=== PATIENT | female | born 1990 | race Caucasian/White ===

== ENCOUNTER 2024-06-30 10:51 | Outpatient (AMB) | payer OTHER, SELFPAY ==
--- NOTE | 2024-06-30 11:00 | MHC.PC.OV ---
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 Intake Note: [facility] Allergies No Known Allergies Allergy (Verified 06/30/24 11:21) Medication List - Last Reconciled 06/30/24 by Nita Meza CNP nifedipine ER 30 mg PO DAILY Tobacco use date assessed: 06/30/24 Dental Screening Dental Screen Date: 06/30/24 Did you have a dental visit in the last 12 months?: Yes Did you have a dental problem in the last 6 months where you did not have access to dental care?: No Was dental information given to patient?: Patient has dentist HPI HPI Comments History of Present Illness Details The patient is a 34-year-old female [facility] her ongoing medical conditions, specifically essential hypertension and anemia. She reports a history of essential hypertension first diagnosed in 2019, associated with preeclampsia post-. After the preeclampsia, she received nifedipine 30 mg daily, which she continued for two years before discontinuing. A month ago, her blood pressure elevated again, leading to re-initiation of nifedipine two weeks prior, following an emergency room visit. For her anemia, she has a history of taking ferrous sulfate, last year, which she discontinued six months ago. She denies currently experiencing symptoms related to anemia. Her last comprehensive blood work was approximately two years ago. [facility] - Last office labs/visit/PE: 2 years ago PMH - Hypertension - Iron deficiency anemia Medication - Nifedipine ER 30 mg daily Health Maintenance - Recent vaccinations: COVID-19 and flu shot administered three months ago. - Last Pap smear: December/January 2023, reported as normal. 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 - Last dental visit: One week ago, pending follow-up due to elevated blood pressure during visit. - Eye exam: Last exam over five years ago; referral for routine eye exam planned. - She has never been vaccinated for tetanus. Tdap administered during the visit. - Lifestyle discussions: Low-salt diet emphasized, avoid vaping. - Comprehensive lab work: Planned for completion prior to the next visit; patient advised to fast for 10?12 hours. Social History - Family: Mother to three children, ages 16, 9, and 4. - Residence: Lives in [place]. - Diet: Sometimes makes healthy dietary choices, but generally follows a healthy diet. - Substance use: Vapes flavored substances three times a day and has been vaping for the past 4 years, previously smoked cigarettes until four years ago. No recreational drug use. - Exercise: Reports no regular exercise. - Sleep: Reports generally sleeping well. - Accompanied by: Best friend, referred to as the baby dad. [facility] - Dad: Asthma, cardiovascular disease. - Mom: Diabetes, hypertension. - MGM: Diabetes. [facility] Medical History (Updated 06/30/24 @ 11:53 by Nita Meza CNP) delivery delivered High blood pressure Surgical History (Updated 06/30/24 @ 11:04 by VICENTE Hercules) History of endometrial ablation Family History (Updated 06/30/24 @ 11:24 by VICENTE Hercules) Father Asthma High blood pressure Cardiovascular disease Mother High blood pressure Diabetes Maternal Grandmother Diabetes Brother Asthma Sister Asthma Social History Housing: Apartment Patient Tobacco Use Status: Never used Tobacco e-Cigarette/Vaping Use: Currently Using service: No Current occupational status: employed Current occupation: [employer] Cognitive needs: No Hearing needs: No Vision needs: No Questionnaire PHQ-9 Over the last 2 weeks, how often have you been bothered by any of the following problems? 1. Little interest or pleasure in doing things: not at all 2. Feeling down, depressed, or hopeless: not at all 3. Trouble falling or staying asleep, or sleeping too much: not at all 4. Feeling tired or having little energy: not at all 5. Poor appetite or overeating: not at all 6. Feeling bad about yourself - or that you are a failure or have let yourself or your family down: not at all 7. Trouble concentrating on things, such as reading the newspaper or watching television: not at all 8. Moving or speaking so slowly that other people could have noticed. Or the opposite - being so fidgety or restless that you have been moving around a lot more than usual: not at all 9. Thoughts that you would be better off or of hurting yourself in some way: not at all Total score: 0 Depression Screening Interpretation: Negative Depression Screening Done: Yes [id number] - PHQ-9 Billing: Yes Source: Developed by Drs. Modesto Navarrete, Delisa Suggs, Raúl Mai and colleagues, with an educational juanita from [employer]. Thrive Questionnaire Date Thrive assessed: 06/30/24 I am a: Patient What is your living situation today?: I have a steady place to live Within the past 12 months, did the food you bought not last and you didn't have the money to get more?: Never true Within the past 12 months, did you worry whether your food would run out before you got money to buy more?: Never true Do you have trouble paying for medicines?: Yes Do you have trouble getting transportation to medical appointments?: No Do you have trouble paying your heating and electricity bill?: No Do you have trouble taking care of your child, family member or friend?: No Do you have trouble with day-to-day activities such as bathing, preparing meals, shopping, managing finances, etc.?: No Are you currently unemployed and looking for a job?: No Are you interested in more education?: Yes Please select the resources that you would like help with: None Currently or been in a relationship where the following occur: No concerns reported THRIVE Score: 0 AUDIT C Alcohol Use Questionnaire (AUDIT-C) 1. How often do you have a drink containing alcohol?: Never 3. How often do you have six or more drinks on one occasion?: Never Total Score: 0 Score Reviewed/Action Taken: Yes KELSEA-7 AMB Questionnaire KELSEA-7 Date KELSEA - 7 assessed: 06/30/24 Feeling nervous, anxious, or on edge: 0 = Not at all Not being able to stop or control worryin = Not at all Worrying too much about different things: 0 = Not at all Trouble relaxin = Not at all Being so restless that it is hard to sit still: 0 = Not at all Becoming easily annoyed or irritable: 0 = Not at all Feeling afraid as if something awful might happen: 0 = Not at all Total KELSEA-7 score (0-4 normal; 5-9 mild; 10-14 moderate; 15-21 severe): 0 Source: Developed by Drs. Modesto Navarrete, Delisa Suggs, Raúl Mai and colleagues, with an educational juanita from [employer]. Review of Systems Const Details: Denies chills, Denies fatigue, Denies fever(s), Denies headache(s) and Denies weakness HEENT Denies change in vision, Denies dizziness, Denies headache(s), Denies hearing loss, Denies nasal congestion, Denies sinus pain, Denies sinus pressure and Denies sore throat Card Denies chest pain, Denies lightheadedness, Denies dyspnea and Denies other (palpitations) Resp Denies cough, Denies dyspnea and Denies wheezing GI Denies abdominal pain, Denies melena, Denies hematochezia, Denies change in bowel habits, Denies dyspepsia and Denies nausea Denies hematuria and Denies dysuria Musc Denies abnormal gait, Denies myalgias, Denies arthralgias, Denies numbness and Denies tingling Skin/Breast Denies rash, Denies unusual bruising and Denies wounds Neuro Denies abnormal gait, Denies dizziness, Denies headache(s), Denies memory loss, Denies numbness, Denies Sensory deficit (Neuro), Denies tingling and Denies weakness Psych Denies anxiety, Denies depression and Denies memory loss Endo Denies cold intolerance, Denies fatigue, Denies heat intolerance, Denies polydipsia and Denies polyuria Clemente/Lymph Denies easy bleeding and Denies easy bruising Aller/Immun Denies wheezing Physical exam (Primary Care) Vital Signs: Last Vital Signs Temp 97.9 F 06/30/24 11:12 Pulse 61 06/30/24 11:12 Resp 14 06/30/24 11:12 BP 130/80 06/30/24 11:12 Pulse Ox 100 06/30/24 11:12 Oxygen Delivery Method Room Air 06/30/24 11:12 BMI result Body Mass Index 29.1 Tobacco/Smoking Status: Tobacco use Status Tobacco use date assessed 06/30/24 06/30/24 11:09 Patient Tobacco Use Status Never used Tobacco 06/30/24 11:09 e-Cigarette/Vaping Use Currently Using 06/30/24 11:09 PHQ-9: PHQ-9 Score PHQ-9: Total score 0 06/30/24 11:33 Depression Screening Interpretation: Negative Thrive Assessment: Date of Thrive Assessment Date Thrive assessed 06/30/24 06/30/24 11:09 Currently or been in a relationship where the following occur: No concerns reported Const Other: General: no acute distress, well developed, alert and awake Nutritional Appearance: well nourished Orientation/consciousness: patient oriented x3 HENMT Head: Yes normocephalic and Yes atraumatic Ears: hearing grossly normal bilaterally and TM's normal bilaterally General nose exam: Normal external nose present and Normal nares present Mouth: Normal oral and palatal mucosa present and moist mucous membranes Teeth and gingiva: dentition normal Throat: Yes oropharynx normal Eyes Pupils: Equal, round and reactive pupils present and Pupil accommodation reflex normal EOM: EOMs intact bilaterally Neck Neck: Yes normal visual inspection, Yes no lymphadenopathy and Yes trachea midline Thyroid: Thyroid normal Carotids: no bruits Lymphatic: no lymphadenopathy noted Chest Chest palpation & inspection: normal inspection of the chest Resp Effort & Inspection: normal respiratory effort Auscultation: clear to auscultation bilaterally Cardio Rate: regular rate Rhythm: regular rhythm Heart sounds: S1 normal heart sound present, S2 normal heart sound present, no gallops, no murmurs and no rubs Bruits: no abdominal aortic bruits and no carotid bruits GI Palpation (GI): No Abdominal aortic bruit present, Soft to palpation, nontender, No hepatosplenomegaly present and No Rebound tenderness present Auscultation: normal bowel sounds General: Yes no CVA tenderness Back/Spine/Pelvis Back: no CVA tenderness Cervical Spine: cervical ROM normal and No Cervical spine tenderness Thoracic/Lumbar Spine: thoraco-lumbar ROM normal, No pain with thoraco-lumbar ROM, No thoracic spinal tenderness and No lumbar spinal tenderness Skin General: warm and dry. Normal skin color. Normal skin turgor Lesions: no lesions Rashes: no rashes Trauma: no lacerations or abrasions Wounds: no wounds Nails: normal Neuro General: patient oriented x3, gait normal and CN's II-XI intact bilaterally Cranial nerves: Yes Equal, round and reactive pupils present Cognition (Neuro): normal cognition Gait exam (Neuro): Normal gait present Motor exam (neuro): 5/5 motor strength present throughout Sensory Exam: No Sensory deficit (Neuro) Deep tendon reflexes (DTR's): Right patellar reflex intensity grade: 2+ and Left patellar reflex intensity grade: 2+ Extrem General: Yes normal to inspection, No edema and No calf tenderness Psych Appearance: grossly normal Affect: normal affect Attitude: cooperative Thought process: Normal thought process present Immunizations Boostrix Tdap 2.5 Lf unit-8 mcg-5 Lf/0.5 mL intramuscular syringe Performing Provider: Nita Meza CNP Performing Location: [facility] Administered by: Lani Mo RN on 06/30/24 11:50 Dose Route Admin Location Dispensed Lot Number Expiration Date NDC Dopeman 0.5 mL IM Right Deltoid 0.5 mL [id number] 08/17/26 [id number] [employer] VIS Given Date VIS Provided VIS Publication Date 06/30/24 Single Vaccine 21 Eligibility Eligibility Date Funding Source Not [facility] Eligible 06/30/24 Private Coding Level of Care Code New Pt Prev Care 18-39yr([id number] Diagnoses Normal physical examination, routine Z00.00 High blood pressure I10 Iron deficiency anemia D50.9 Eye exam, routine Z01.00 Engages in vaping Z72.89 Laboratory tests ordered as part of a complete physical exam (CPE) Z00.00 Additional Codes PHQ-9 - 05802 - PHQ-9 Billing: Yes ([id number]) Assessment & Plan Assessment & Plan (1) Normal physical examination, routine: Code(s): Z00.00 - Encounter for general adult medical examination without abnormal findings Category: Medical Plan: No significant functional limitation noted. (2) High blood pressure: Code(s): I10 - Essential (primary) hypertension Category: Medical Plan: Continue nifedipine 30 mg daily. Advisement on low-salt diet provided. (3) Iron deficiency anemia: Code(s): D50.9 - Iron deficiency anemia, unspecified Category: Medical Plan: No current treatment necessary, monitor lab results once obtained. Address adherence to previously prescribed iron supplements if needed. (4) Eye exam, routine: Code(s): Z01.00 - Encounter for examination of eyes and vision without abnormal findings Category: Medical Plan: Referral to an eye doctor for a routine exam. (5) Engages in vaping: Code(s): Z72.89 - Other problems related to lifestyle Category: Medical Plan: Cessation encouraged. (6) Laboratory tests ordered as part of a complete physical exam (CPE): Code(s): Z00.00 - Encounter for general adult medical examination without abnormal findings Category: Medical Plan: Fasting labs ordered as part of a complete physical exam. Advised to fast for at least 10 hours before getting labs drawn. May drink water Verbalized understanding and agreed with treatment plan. Plan During the visit, I discussed the importance of maintaining controlled blood pressure and the benefits of adhering to her prescribed antihypertensive medication. I emphasized lifestyle modifications, including a low-salt diet and cessation of vaping, as crucial to managing her hypertension. For her anemia, I noted the previous course of iron supplementation and reiterated the plan to review lab work to address any deficiencies. Respiratory health risks associated with vaping were discussed, highlighting long-term effects. We reviewed the patient?s immunization history and completed her tetanus vaccination in-office. I recommended routine screening, including an eye exam and ensured agreement on fasting labs before the next visit. Orders: Orders TDaP Immunization Today Z23 - Encounter for immunization Complete Blood Count Auto Diff Today Z00.00 - Encounter for general adult medical examination without abnormal findings Comprehensive [place]. Panel Fast Today Z00.00 - Encounter for general adult medical examination without abnormal findings Lipid Panel Today Z00.00 - Encounter for general adult medical examination without abnormal findings TSH reflex Free T4 Today Z00.00 - Encounter for general adult medical examination without abnormal findings UA CC w/rflx Micro + Cult Today Z00.00 - Encounter for general adult medical examination without abnormal findings Referrals Ophthalmology Referral Z01.00 - Encounter for examination of eyes and vision without abnormal findings Patient Instructions: - Continue nifedipine 30 mg daily for blood pressure management. - Follow a low-salt diet and avoid excessive sodium. - Schedule and complete fasting lab work (10-12 hours fasting) before the next appointment. - Follow up with a dentist for a pending evaluation caused by elevated blood pressure. - Arrange a comprehensive eye exam through referral provided. - Return for follow-up in 2?3 weeks to review lab results. - Continue to avoid smoking and vaping, given associated respiratory risks. - Remain updated on recommended vaccinations. Patient was informed and verbally consented to the use of an ambient scribe for clinic note documentation during this visit.
[2024-06-30 11:12] VITALS: BP 130/80; PULSE 61; RESP 14; TEMP 36.6; O2SAT 100; BMI 29.1
--- OUTSIDE RECORDS SUMMARY | 2024-07-06 01:46 | XMS_ITS ---
Author Name [facility] Organization Unknown Results Test Name/Text Value Interpretation Date Range Source VITAMIN D, 25H 21ng/mL Below low normal - [facility] FERRITIN 13ng/mL Normal 6 - 307 [facility] CREATININE 0.8mg/dL Normal 0.6 - 1.2 [facility] SODIUM 142mmol/L Normal 137 - 144 [facility] CHLORIDE 107mmol/L Normal 100 - 111 [facility] CALCIUM, TOTAL 9mg/dL Normal 8.4 - 10.2 [facility] AST (SGOT) 78U/L Above high normal 17 - 35 [facility] UREA NITROGEN 14mg/dL Normal 8 - [address] [facility] ALBUMIN, AUTOMATED 4.1g/dL Normal 3.8 - 5. 3 [facility] GLUCOSE 68mg/dL Below low normal 70 - 200 [facility] BICARBONATE 28mmol/L Normal 23 - 32 [facility] POTASSIUM 3.8mmol/L Normal 3.6 - 5.1 [facility] GLOMERULAR FILTRATION RATE ML/MIN/1.73 SQ M.PREDICTED 99mL/min/1.73m* 2 Normal 60 - [facility] ALT (SGPT) 24U/L Normal 8 - 39 [facility] PROTEIN TOTAL 6.8g/dL Normal 6.2 - 8.[address] [facility] BILIRUBIN, TOTAL 0.4mg/dL Normal 0.1 - 1.2 [facility] ALKALINE PHOSPHATASE 68U/L Normal 39 - 1 13 [facility] ANION GAP 7mmol/L Normal 3 - 11 [facility] THYROID STIM HORMONE 0.79uIU/mL Normal 0.35 - 4.94 [facility] RBC DISTRIBUTION WIDTH 13% Normal 11.6 - 14.8 [facility] AUTO NRBC % 0% Normal 0 - [address] [facility] [address] 3.810*3/uL Normal 1.4 - 6.[address] [facility] [address] 0.510*3/uL Normal 0.2 - 0.8 [facility] MCHC 31.9g/dL Below low normal 32 - 36 [facility] MCH 30.2pg Normal 26 - 34 [facility] IMMATURE GRANULOCYTE % 0.3% Normal 0 - 0.6 [facility] EOSINOPHIL % 4.1% Normal 0 - 6 [facility] ABSOLUTE BASOPHIL CT 0.110*3/uL Normal 0 - 0 .2 [facility] MCV 94.6fL Normal 80 - 100 [facility] PLATELET COUNT 25241*3/uL Normal [id number] 150 - 440 [facility] BASOPHILS % 1% Normal 0 - [address] [facility] [address] 1.710*3/uL Normal 0.7 - 4.[address] [facility] [address] 0.310*3/uL Normal 0 - 0.3 [facility] HEMATOCRIT 40.4% Normal 35 - 47 [facility] WHITE CELL COUNT 6.310*3/uL Normal 3.6 - 11 [facility] RED CELL COUNT 4.2710*6/???L Normal 3.8 - 5. 2 [facility] MONOCYTE % 7.9% Normal 4 - 12 [facility] NEUTROPHIL % 60.2% Normal 40 - 70 [facility] HEMOGLOBIN 12.9g/dL Normal 12 - 16 [facility] LYMPHOCYTE % 26.5% Normal 20 - 50 [facility] VITAMIN B12 426pg/mL Normal [id number] [facility] MICROCYTOSIS 1+ Normal [id number] [facility] RBC MORPHOLOGY (STATUS) Present Normal [id number] [facility] HYPOCHROMIA 1+ Normal [facility] RBC DISTRIBUTION WIDTH 32.2% Above high normal [id number] 11.6 - 14.8 [facility] PLATELET COUNT 15288*3/uL Normal [id number] 150 - 440 [facility] MCHC 29.1g/dL Below low normal [id number] 32 - 36 [facility] HEMATOCRIT 35.8% Normal [id number] 35 - 47 [facility] WHITE CELL COUNT 4.610*3/uL Normal [id number] 3.6 - 11 [facility] MCH 23pg Below low normal [id number] 26 - 34 [facility] RED CELL COUNT 4.5210*6/???L Normal [id number] 3.8 - 5. 2 [facility] MCV 79.2fL Below low normal [id number] 80 - 100 [facility] HEMOGLOBIN 10.4g/dL Below low normal [id number] 12 - 16 [facility] BACTERIA Few Normal [id number] - [facility] RBC 2-4 Normal [id number] 0 - 1 [facility] EPITHELIAL CELLS Many Normal [id number] - [facility] MUCUS 2+ Normal [id number] - [facility] WBC 0-2 Normal [id number] 0 - 2 [facility] CREATININE 0.8mg/dL Normal [id number] 0.6 - 1.2 [facility] POTASSIUM 4.1mmol/L Normal [id number] 3.6 - 5.1 [facility] BICARBONATE 25mmol/L Normal [id number] 23 - 32 [facility] GLOMERULAR FILTRATION RATE ML/MIN/1.73 SQ M.PREDICTED 100mL/min/1.73m *2 Normal [id number] 60 - [facility] SODIUM 140mmol/L Normal [id number] 137 - 144 [facility] CHLORIDE 109mmol/L Normal [id number] 100 - 111 [facility] CALCIUM, TOTAL 8.7mg/dL Normal [id number] 8.4 - 10.2 [facility] UREA NITROGEN 9mg/dL Normal [id number] 8 - 24 [facility] ANION GAP 6mmol/L Normal [id number] 3 - 11 [facility] GLUCOSE 68mg/dL Below low normal [id number] 70 - 200 [facility] ALBUMIN, AUTOMATED 4g/dL Normal [id number] 3.8 - 5. 3 [facility] COLOR OF URINE Yellow Normal [id number] - [facility] PROTEIN, SULFOSALICYLIC Trace Abnormal [id number] - [facility] LEUKOCYTE ESTERASE Negative Normal [id number] - [facility] PH OF URINE 7 Normal [id number] 5 - 8 [facility] KETONES URINE Negative Normal [id number] - [facility] UROBILINOGEN, URINE 0.2EU/dL Normal [id number] 0.2 - 1 [facility] NITRITE Negative Normal [id number] - [facility] BILIRUBIN, URINE Negative Normal [id number] - [facility] CLARITY OF URINE Clear Normal [id number] - [facility] PROTEIN QUAL Trace Abnormal [id number] - [facility] HEMOGLOBIN, URINE Trace Abnormal [id number] - [facility] GLUCOSE, QUAL Negative Normal [id number] - [facility] SPECIFIC GRAVITY 1.02 Normal [id number] 1.003 - 1.035 [facility] FOLATE 15.4ng/mL Normal [id number] 7 - 31.4 [facility] History of Medication Use Medication Directions Dispensed Refills Start Date End Date Stat FeroSuL 325 mg (65 mg iron) tablet Take 1 tablet (325 mg total) by mouth daily with breakfast. 11/04/2023 active ibuprofen (MOTRIN) 600 MG tablet Take 1 tablet (600 mg total) by mouth 4 times daily (every 6 hours) as needed for mild pain. 02/26/2023 active ammonium lactate (LAC-HYDRIN) 12 % lotion Apply topically as needed for dry skin. For hands and legs 06/01/2022 active triamcinolone (KENALOG) 0.5 % cream Apply topically 2 (two) times a day. 08/28/2023 active ibuprofen 600 mg tablet Take 1 tablet (600 mg total) by mouth 3 (three) times a day as needed for mild pain (1-3). 08/14/2022 active hydrocortisone 2.5 % cream 12/17/2022 active cephalexin (KEFLEX) 500 MG capsule Take 1 capsule (500 mg total) by mouth 4 (four) times a day. 08/28/2023 active FeroSuL 325 mg (65 mg iron) tablet 03/21/2023 active sertraline (ZOLOFT) 50 MG tablet Take 1/2 tablet at bedtime x 7 days then increase to 1 pill at bedtime 12/19/2022 aborted ondansetron (Zofran) 8 mg tablet Take 1 tablet (8 mg total) by mouth every 8 (eight) hours as needed for nausea or vomiting. 08/14/2022 active LORazepam (ATIVAN) 0.5 MG tablet Take 1 tablet (0.5 mg total) by mouth daily as needed for anxiety. 12/19/2022 aborted fexofenadine (ARVIN) 180 MG tablet Take 1 tablet (180 mg total) by mouth daily. Administer with water only; do not administer with fruit juices. 08/28/2023 active cephalexin (KEFLEX) 500 MG capsule Take 1 capsule (500 mg total) by mouth 4 (four) times a day. 08/28/2023 active FeroSuL 325 mg (65 mg iron) tablet 03/21/2023 active iron,carbonyl-vitami n C 65 mg iron- 125 mg tablet,delayed release (DR/EC) Take 1 tablet by mouth in the morning. 08/14/2022 active tranexamic acid (LYSTEDA) 650 MG Tab tablet Take 2 tablets three times a day for a total of 6 pills a day during your period for 5 days 12/26/2022 active betamethasone valerate (VALISONE) 0.1 % ointment Apply topically 2 (two) times a day. 06/01/2022 active NIFEdipine (PROCARDIA XL) 30 MG 24 hr tablet Take 1 tablet (30 mg total) by mouth daily. 12/19/2022 aborted ibuprofen (MOTRIN) 800 mg tablet Take 1 tablet (800 mg total) by mouth 3 times daily (every 8 hours) as needed for moderate pain. 12/19/2022 aborted lidocaine (ZTlido) 1.8 % adhesive patch,medicated Apply 1 patch topically daily. Keep on for 12 hrs then remove and leave off for 12 hrs 06/01/2022 active NIFEdipine XL (PROCARDIA XL) 30 mg 24 hr tablet Take 1 tablet (30 mg total) by mouth in the morning. 06/01/2022 active COVID-19 antigen test (COVID-19 At-Home Test) kit 1 Package once as needed (fever, cough) for up to 1 dose. 08/14/2022 active betamethasone dipropionate (DIPROLENE) 0.05 % ointment Apply topically 2 (two) times a day as needed. 12/19/2022 aborted nitrofurantoin monohydrate (MACROBID) 100 MG capsule Take 1 capsule (100 mg total) by mouth 2 (two) times a day. Dispense generic equivalent of MACROBID 01/04/2023 active HYDROmorphone (DILAUDID) 2 MG tablet Take 1 tablet (2 mg total) by mouth 4 times daily (every 6 hours) as needed for severe pain. Max Daily Amount: 8 mg 02/26/2023 aborted ergocalciferol (VITAMIN D2) 1,250 mcg (50,000 unit) capsule Take 1 capsule (50,000 Units total) by mouth once a week. 08/14/2022 active sertraline (ZOLOFT) 25 MG tablet Take 1 tablet (25 mg total) by mouth daily. 12/19/2022 aborted iron sucrose (VENOFER) 300 mg in sodium chloride (NS) 0.9 % 100 mL IVPB 300 mg, Intravenous, Administer over 60 Minutes, Once, On Thu01/09/23 at 1730, For 1 doseWhen administering to hemodialysis-depen dent patients, give iron sucrose early during the dialysis session.??Administ er doses less than or equal to 200 mg undiluted by slow IV injection over 5 minutes.??Infuse do 12/28/2022 completed PARoxetine (PAXIL) 10 mg tablet take 1/2 tablet by oral route every bedtime for 1 week. then 1 whole tablet at bedtime 03/21/2023 active No known medications No known medications 02/14/2023 active VITAFOL-ONE 29 mg iron- 1 mg-200 mg capsule Take 1 capsule by mouth. 06/01/2022 active hydrocortisone 2.5 % cream 06/01/2022 active multivitamin Tab tablet Take 1 tablet by mouth daily. 12/18/2022 active diclofenac sodium (Voltaren) 1 % gel Apply topically 4 (four) times a day. 06/01/2022 active ferrous sulfate 325 (65 FE) MG tablet Take 1 tablet (325 mg total) by mouth daily. Take 2 hours before or 4 hours after acid reducers. 12/26/2022 active Problems Problem Status Onset Date Problem Type Date of Resolution Source Other specified anemias active 2022-12-23 ProblemAct [facility] Term active 2019-08-[address] [address] Menometrorrhagia active 2022-12-15 ProblemAct [facility] Palpitations active 2020-04-26 ProblemAct [facility] Eczema of both hands active 2022-05-16 ProblemAct [facility] Anemia active 2022-12-23 ProblemAct [facility] control counseling active 2019-08-01 ProblemAct [facility] Preeclampsia active 2019-09-01 ProblemAct [facility] Hypertension active 2019-08-01 ProblemAct [facility] History of delivery active 2019-05-05 ProblemAct [facility] 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-04 ProblemAct [facility] Hx of macrosomia, infant of prior , currently active 2019-08-01 ProblemAct [facility] Pruritus active EncounterDiagnosisAct [facility] Dermatitis active EncounterDiagnosisAct [facility] Generalized anxiety disorder active 2019-11-04 ProblemAct [facility] Acute stress disorder active 2019-11-04 ProblemAct [facility] Menorrhagia with regular cycle active 2023-03-09 ProblemAct [facility] Essential hypertension active 2020-02-01 ProblemAct [facility] Dislocation of shoulder, recurrent, right active 2020-02-01 ProblemAct [facility] Abnormal vaginal bleeding active 2022-12-22 ProblemAct [facility] History of pre-eclampsia active 2019-09-01 ProblemAct [facility] Anxiety active 2020-02-01 ProblemAct [facility] Immunizations Vaccine Date Source Lot Number Status Influenza (IM) Preservative Free 06/25/2016 [facility] completed Tdap 01/07/2018 [facility] completed COVID-19 mRNA (PFIZER) 12/06/2020 [facility] co mpleted Tdap 07/06/2019 [facility] completed COVID-19 mRNA (PFIZER) 06/27/2021 [facility] co mpleted Influenza, Quadrivalent 06/01/2020 [facility] [id number] c ompleted Influenza TIV (IM) 05/20/2018 [facility] comple lucho COVID-19 mRNA (PFIZER) 11/15/2020 [facility] co mpleted
--- OUTSIDE RECORDS SUMMARY | 2024-07-06 01:46 | XMS_ITS | Continuity of Care Document ---
Author Organization [facility] vices Address [address] [place] [address] Phone Care Team Providers Care Janitorial Assistant Name Role Phone Fiona Jimenez LMSW Unavailable Unavail able Procedures Procedure Date Psychotherapy, 30 Minutes With Patient D Advance Directives Directive Yes / No Effective Date File Name No Information Encounters Encounter Description Practice Location Reason(s) For Visit Diagnoses Date Provider Providers Copied on Encounter [facility], [address] [place] [address], [facility] [place] [phone] [facility] No Information Yoseph Jaimes. [address] [place] [address], . [phone] Psychotherapy , 30 Minutes With Patient [facility], [address] [place] [address], [facility] [place], [phone] [facility] Adjustment disorder with anxiety Yoseph Jaimes. [address] [place] [address], . tel:[phone] Family History Family Member Type Diagnosis Age At Onset No Information Payers Payer name Insurance type Covered green party ID Authoriza tion(s) CARRI Vides [id number] Social History Type Description Quantity Date Captured Comments Sex Female Smoking Status No Information Sexual Orientation Straight or heterosexual May Gender Identity Female Chief Complaint And Reason For Visit No Information Reason For Referral Reason For Referral No Information History Of Present Illness Encounter Date Complaint History Of Prese nt Illness No Information Functional Status Date Functional Assessmen t No Information Instructions Date Instruction Additional Infor mation No Information Assessments Type Assessment Date No Information Patient Care Teams Name Effective Dates (start - stop) Status Members No Information
== END 2024-06-30 11:48 | disposition home or self-care (01) ==
PROVIDERS: PCP Nurse Practitioner Family; Visit Provider Nurse Practitioner Family
DX: Z00.00 Encounter for general adult medical examination without abnormal findings (principal); I10 Essential (primary) hypertension; D50.9 Iron deficiency anemia, unspecified; Z72.89 Other problems related to lifestyle; Z23 Encounter for immunization

== ENCOUNTER → 2024-06-30 10:51 | Outpatient (BNVA) | payer OTHER, SELFPAY | PROVIDERS: PCP Nurse Practitioner Family; Visit Provider Nurse Practitioner Family | DX: Z00.00 Encounter for general adult medical examination without abnormal findings (principal); Z23 Encounter for immunization; I10 Essential (primary) hypertension; D50.9 Iron deficiency anemia, unspecified | CPT/HCPCS: 90471; 90715; 96127; 99385 ==

== ENCOUNTER 2024-07-13 08:59 | Outpatient (REF) | payer OTHER, SELFPAY ==
[2024-07-13 11:50] LABS: Appearance Urine Cloudy; Color Urine Yellow; Glucose Urine UA Negative (Negative); Leukocyte Esterase Urine Negative (Negative); Nitrite Urine Negative (Negative); PH 6.5 (5.0-9.0); Specific Gravity - Urine 1.015 (1.005-1.025); Urine Blood Negative (Negative); Urine Ketones Negative (Negative); Urine Protein Negative (Neg-Trace)
[2024-07-13 12:00] LABS: MANUAL DIFF FLAG NO
[2024-07-13 12:02] LABS: Basophils Absolute Auto 0.1 X10*3/uL (0.0-0.2); Basophils Percent Auto 1.4 % (0-2); Eosinophils Absolute Auto 0.3 X10*3/uL (0.0-0.4); Eosinophils Percent Auto 5.2 % (0-4); Hematocrit 38.8 % (37.0-47.0); Hemoglobin 12.8 g/dl (12.0-16.0); Imm Gran Abs Auto 0.02 X10*3/uL (0.00-0.03); Imm Gran Pct Auto 0.4 % (0.0-0.4); Lymphocytes Absolute Auto 1.6 X10*3/uL (1.2-4.9); Lymphocytes Percent Auto 28.1 % (20-40); Mean Corpuscular Hemoglobin 29.4 pg (27.0-33.0); Mean Corpuscular Volume 89.2 fL (80.0-98.0); Mean Platelet Volume 10.7 fL (9.4-12.3); Monocytes Absolute Auto 0.3 X10*3/uL (0.1-1.2); Neutrophils Absolute Auto 3.3 x10*3/uL (2.0-8.3); Neutrophils Percent Auto 58.9 % (45-73); Platelet Count 304 X10*3/uL (160-400); Red Blood Count 4.35 X10*6/uL (4.20-5.50); White Blood Count 5.6 X10*3/uL (4.8-10.8)
[2024-07-13 12:24] LABS: Alanine Aminotransferase 21 U/L (0-31); Albumin Level 4.1 g/dL (3.5-5.0); Alkaline Phosphatase 76 U/L (39-117); Anion Gap 7 (12-20); Aspartate Amino Transferase 98 U/L (5-31); Bilirubin Total 0.2 mg/dL (0.0-1.0); Blood Urea Nitrogen 10 mg/dL (9-16); Calcium 8.3 mg/dL (8.4-10.2); Carbon Dioxide 29 mmol/L (22-29); Chloride 108 mmol/L (96-108); Cholesterol 137 mg/dL (<200); Estimated Glomerular Filt Rate > 60; Glucose Fasting 98 mg/dL (60-99); HDL Cholesterol 38 mg/dL (>40); LDL Cholesterol Calculated 84 mg/dL (<100); Potassium 3.8 mmol/L (3.3-5.1); Sodium 140 mmol/L (135-145); Total Protein 7.3 g/dL (6.5-8.0); Triglycerides 77 mg/dL (<150)
[2024-07-13 12:44] LABS: TSH reflex Free T4 0.97 uIU/mL (0.32-4.0)
== END 2024-07-13 09:00 | disposition home or self-care (01) ==
LOC: HO.WFDLDS 08:59
PROVIDERS: Visit Provider Nurse Practitioner Family
DX: Z00.00 Encounter for general adult medical examination without abnormal findings (principal)
CPT/HCPCS: 36415; 80053; 80061; 81003; 84443; 85025

== ENCOUNTER 2024-07-15 13:55 | Outpatient (AMB) | payer OTHER, SELFPAY ==
--- NOTE | 2024-07-15 13:52 | A.OFFPC_ITS ---
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 Required: No Is last menstrual period known: Yes Last menstrual period: 06/29/24 Post menopausal: No Patient : No Allergies No Known Allergies Allergy (Verified 07/15/24 13:52) Tobacco use date assessed: 07/15/24 Dental Screening Dental Screen Date: 07/15/24 Did you have a dental visit in the last 12 months?: Yes Did you have a dental problem in the last 6 months where you did not have access to dental care?: No Was dental information given to patient?: Patient has dentist HPI HPI Comments History of Present Illness Details 34-year-old [facility] of recent lab results. She admits to taking her medication as prescribed without adverse reactions. No acute symptoms at this time. [facility] Medical History (Updated 07/15/24 @ 14:41 by Nita Meza CNP) delivery delivered High blood pressure Surgical History (Updated 06/30/24 @ 11:04 by VICENTE Hercules) History of endometrial ablation Family History (Updated 06/30/24 @ 11:24 by VICENTE Hercules) Father Asthma High blood pressure Cardiovascular disease Mother High blood pressure Diabetes Maternal Grandmother Diabetes Brother Asthma Sister Asthma Social History Housing: Apartment Patient Tobacco Use Status: Never used Tobacco e-Cigarette/Vaping Use: Currently Using Patient : No service: No Current occupational status: employed Current occupation: [employer] Cognitive needs: No Hearing needs: No Vision needs: No Female Reproductive History Menstrual Date of last menstrual period: 06/29/24 Questionnaire Thrive Questionnaire Date Thrive assessed: 06/30/24 KELSEA-7 AMB Questionnaire KELSEA-7 Date KELSEA - 7 assessed: 06/30/24 Source: Developed by Drs. Modesto Navarrete, Delisa Suggs, Raúl Mai and colleagues, with an educational juanita from [employer]. Review of Systems Const Details: Const Denies chills, Denies fatigue, Denies fever(s), Denies headache(s) and Denies weakness ENT Denies dizziness and Denies headache(s) Card Denies chest pain, Denies lightheadedness, Denies dyspnea and Denies other (Palpitations) Resp Denies cough, Denies dyspnea, Denies wheezing and Denies other ( shortness of breath) GI Denies abdominal pain, Denies melena, Denies hematochezia, Denies change in bowel habits, Denies dyspepsia and Denies nausea Denies hematuria and Denies dysuria Musc Denies abnormal gait, Denies myalgias, Denies arthralgias, Denies numbness and Denies tingling Skin/Breast Denies rash, Denies unusual bruising and Denies wounds Neuro Denies abnormal gait, Denies dizziness, Denies headache(s), Denies memory loss, Denies numbness, Denies Sensory deficit (Neuro), Denies tingling and Denies weakness Psych Denies anxiety, Denies depression, Denies memory loss Endo Denies cold intolerance, Denies fatigue, Denies heat intolerance, Denies polydipsia and Denies polyuria Aller/Immun Denies wheezing Physical exam (Primary Care) Tobacco/Smoking Status: Tobacco use Status Tobacco use date assessed 07/15/24 07/15/24 13:53 Patient Tobacco Use Status Never used Tobacco 07/15/24 13:53 e-Cigarette/Vaping Use Currently Using 07/15/24 13:53 Thrive Assessment: Date of Thrive Assessment Date Thrive assessed 06/30/24 07/15/24 13:53 Const Other: Telehealth visit. No physical exam. Telehealth Telehealth Telehealth Platform: Telephone Location of provider rendering services: practice address Location of patient: address on file Patient Identification confirmed using: Name, : Yes Telehealth method: voice only Patient verbally consented to treatment: Yes Patient verbally consented to billing insurance company: Yes Patient informed of any privacy concerns related to visit: Yes Coding Level of Care Code Tele New Pt Level 3 (43323) Diagnoses Hypocalcemia E83.51 Elevated AST (SGOT) R74.01 Low HDL (under 40) E78.6 Time Spent (min) 10 Assessment & Plan Assessment & Plan (1) Hypocalcemia: Code(s): E83.51 - Hypocalcemia Category: Medical Plan: Recent calcium level is slightly low, 8.3. Will recheck calcium level and check vitamin-D level. Will make changes as needed. Advised to get blood work done at her earliest convenience. Will make changes as needed. Follow-up in 3 months for hypertension or sooner with symptoms or concerns. Verbalized understanding and agreed with the plan. (2) Elevated AST (SGOT): Code(s): R74.01 - Elevation of levels of liver transaminase levels Category: Medical Plan: Recent AST level is elevated, 98. Hepatic steatosis is possible. Will recheck liver panel make changes and as needed. Advised to fast for 10-12 hours, may drink water, and get lab work done before next visit. Verbalized understanding and agreed with the plan. (3) Low HDL (under 40): Code(s): E78.6 - Lipoprotein deficiency Category: Medical Plan: Recent HDL level is slightly low 38. Advised to limit foods high in saturated fat and avoid foods high in trans fat. Routine exercise encouraged. Will check lipid panel level annually or if symptomatic. Verbalized understanding and agreed with the plan. Orders: Orders Vitamin D 25-OH Total Today E83.51 - Hypocalcemia Calcium Today E83.51 - Hypocalcemia Liver Panel Today R74.01 - Elevation of levels of liver transaminase levels
== END 2024-07-15 14:53 | disposition home or self-care (01) ==
LOC: HO.HMCFM 13:55
PROVIDERS: PCP Nurse Practitioner Family; Visit Provider Nurse Practitioner Family
DX: E83.51 Hypocalcemia (principal); R74.01 Elevation of levels of liver transaminase levels; E78.6 Lipoprotein deficiency

== ENCOUNTER → 2024-07-15 13:55 | Outpatient (BNVA) | payer OTHER, SELFPAY | PROVIDERS: PCP Nurse Practitioner Family; Visit Provider Nurse Practitioner Family ==

== ENCOUNTER 2024-09-29 11:52 | Outpatient (REF) | payer OTHER, SELFPAY ==
--- OUTSIDE RECORDS SUMMARY | 2024-09-29 15:01 | XMS_ITS | Encounter Summary ---
Author Organization [facility] Address [address] [place] [address] Care Team Providers Care Radiochemical Technician Name Role Phone Provider, Unknown Unavailable Bryanna Herrmann MD Primary Care Provider Greta Gray LPCA Unavailable Carrie Hunt BUSINESS INTELLIGENCE ADMINISTRATOR Unavailable Unknown Primary Care Provider [phone] -[phone] Encounter Details Date Type Department Care Team (Late st Contact Info) Description 10/16/2020 Lab Requisition [facility] Through [address] [place] [phone] Mike Frank MD [address] [place], [place] [phone] Encounter for laboratory testing for COVID-19 virus [...] Date/Time Associated Diagnosis Comments COVID-19 (SARS-COV-2) - [facility] Routine 10/16/2020 12:43 PM EDT Encounter for laboratory testing for COVID-19 virus [ICD-10-CM] documented in this encounter Results * COVID-19 (SARS-COV-2) ([facility]) (10/16/2020 12:43 PM EDT) COVID-19 RT-PCR NOT-DETEC TAMARA Not-Detec tamara 10/17/2020 2:52 PM EDT [facility] RACHEL QUINONEZ Comment:Interpretation: The viral RNA was not detected, making the COVID-19 diagnosis less likely. Clinical correlation is highly recommended.Final report signed by Murphy Corona, Ph.D., Laboratory DirectorTests performed at [facility] Nasopharyngeal swab / Unknown 10/16/2020 12:43 PM EDT 10/16/2020 12:43 PM EDT [facility]ative [facility] - 10/17/2020 2:52 PM EDT Performed by [facility] [address] [place] [address], CLIA# [id number] and [place] License# [id number] Mike Frank MD MICROBIOLOGY - GENER AL ORDERABLES YEE QUINONEZ documented in this encounter Visit Diagnoses Diagnosis Encounter for laboratory testing for COVID-19 virus documented in this encounter Care Teams Radiochemical Technician Relationship Specialty Start Date End Date Bryanna Herrmann MD 1 DO NOT USE THIS RECORD PCP - General Obstetrics and Gynecology 09/01/19 12/28/22 Unknown Unknow Provider Address PCP - General 12/29/22 Provider, Unknown 1 DO NOT USE THIS RECORD 02/01/19 Greta Gray LPCA 1 DO NOT USE THIS RECORD Clinician Social Work 10/05/19 11/29/20 Carrie Hunt APRN [address] [place] [address] Primary BH Attending Psychiatry, General 10/28/19 documented as of this encounter
--- OUTSIDE RECORDS SUMMARY | 2024-09-29 15:01 | XMS_ITS | Clinical Summary ---
Author Organization [facility] ity Address [address] [place] [address] Care Team Providers Care Lead Software Development Engineer Name Role Phone Unavailable Primary Care Provider [...]
--- OUTSIDE RECORDS SUMMARY | 2024-09-29 15:01 | XMS_ITS | Clinical Summary ---
Author Organization [facility] Address [address] [place] [address] Care Team Providers Care Taker Down Name Role Phone Provider, Unknown Unavailable [phone] Unknown Primary Care Provider [phone] [...] (05/20/2019): Added automatically from request for surgery [id number] Resolved Problems Problem Noted Date Diagnosed Date [...] Date/Time Associated Diagnosis Comments THINPREP PAP TEST (YOGH[employer]T MAKER) WITH HPV REFLEX, GC/CT Routine 12/15/2022 3:19 [...] Lincoln MD LAB AMB PATH/CYTO OR DERABLES [facility] [address] [place] [address], [place] from Last 3 Months or Most [...] Agents on File Name Relationship Healthcare Agent [facility] p Communication Refugio Mortonantonio Spouse 4. Next of K in (Spouse, Adult Child, Parent, Adult Sibling, Grandparent) Care Teams Taker Down Relationship Specialty Start Date End Date Unknown Unknow Provider Address PCP - General 12/29/22 Provider, Unknown 1 DO NOT USE THIS RECORD 02/01/19
--- OUTSIDE RECORDS SUMMARY | 2024-09-29 15:01 | XMS_ITS | Patient Health Record ---
Author Organization [facility] Address [address] [place] [address] Care Team Providers Care Hamper Maker Name Role Phone Jabier Tucker Primary Care Provider Reason For Referral No Information Medications Medication SIG (Take, Route, Frequency, Duration) Notes Start Date End Date Status Blood Pressure Kit - Take for I10 daily please issue digital monitor in vitro daily for 365 days I10 Digital Monitor Length of need:365 days 09/30/2018 Active NIFEdipine ER 60 MG 1 tablet on an empty stomach Orally Once a day Active Plus 27-1 MG 1 tablet Orally On ce a day for 30 day(s) 01/24/2019 Active Immunizations Vaccine Route Administration Date Status Comme nts Influenza (split), 3 yrs and above Unknown 05/20/2018 Pending Influenza (split), 3 yrs and above IM Intramuscular 05/20/2018 Administered Influenza, seasonal, injectable, preservative free, 3 yrs and above IM Intramuscular 06/25/2016 Administered Tdap IM Intramuscular 01/07/2018 Administered Social History Tobacco Use: Social History Observation Description Date Details (start date - stop date) Never Smoker NA - NA Sex Assigned At : Social History Observation Description Sex Assigned At Female * Tobacco Use/Smoking assessment Question Answer Notes Are you a nonsmoker Additional Findings: Tobacco Non-User Current no n-smoker Alcohol Screen (Audit-C) Question Answer Notes Did you have a drink containing alcohol in the p ast year? No Points 0 Interpretation Negative Sexual History Question Answer Notes Had sex in the past 12 months (vaginal, oral, or anal)? Yes with Men only Use protection? No Have you ever had a Sexually transmitted disease ? No Last menstrual period now DAST - Drug and Alcohol Question Answer Notes Total Score: 0 Interpretation: No problems reported SBIRT Question Answer Notes Patient refused/declined SBIRT screening at this time? No In the past 3 months, how of ten do you have a drink containing alcohol? Never In the past 3 months, how of ten do you have 4 or more drinks on one occasion? Females (and Males 65 and older). In the past 3 months, how often do you have 5 or more drinks on one occasion? Males (younger than 65) Never In the past 12 months, did y ou smoke pot, use another street drug, or use a prescription painkiller, stimulant, or sedative for a non-medical reason? No The cumulative score is 0 A referral is not needed Problems Problem Type SNOMED Code ICD Code Onset Dates Problem Status W/U Status Risk Notes Problem 90749408 Essential (primary) hypertension (I10) Active confirmed Problem 372209002 Anxiety disorder, unspecified type (F41.9) Active confirmed Problem 60566456 Amenorrhea (N91.2) Active confirmed Problem Obesity (515189290) Obesity (E66.9) Active confirmed Problem 05164845 Folliculitis (L73.9) Active confirmed Problem Menstrual disorder (488054100) Irregular menses (N92.6) Active confirmed Problem 77940106 Absent menses (N91.2) Active confirmed Problem 110174624 Mass of left side of neck (R22.1) Active confirmed present x 11 years Problem 843510008 LFT elevation (R94.5) Active confirmed liver echogenic on US c/w fatty liver 02/10 Problem 302833683 NAFLD (nonalcoholic fatty liver disease) (K76.0) Active confirmed AST previously 50, now 52. denies alcohol use Problem 569676670 Dyshidrotic eczema (L30.1) Active confirmed Problem 676919318 Encounter for tobacco use cessation counseling (Z71.6) Active confirmed Plan Of Treatment Pending Test Test Name Order Date Urinalysis 06/25/2016 Urinalysis 03/03/2016 RESPIRATORY ALLERGY PROFILE REGION I THINPREP TIS PAP REFLEX HPV mRNA E6/E7, CT/NG, TRICH 02/26/2017 HEPATIC FUNCTION PANEL 05/20/2018 CHLAMYDIA/N. GONORRHOEAE RNA, TMA 2015 CULTURE, URINE, ROUTINE 06/25/2016 HCG 05/27/2016 HCG 04/11/2016 Insurance Providers Payer Name Payer Address Payer Phone Subscriber Number Group Number Insured Name Patient Relationship to Insured Coverage Start Date Coverage End Date [employer] [address] [place] [phone] [id number] Vivian Sy Self - patient is the insured [employer] [address] [place] [phone] [id number] Vivian Sy Self - patient is the insured Medications Administered Medication Instructions Date of Administration Dosage Notes DEPO PROVERA 06/04/2016 1 mL DEPO PROVERA 09/01/2016 1 mL DEPO PROVERA 11/19/2016 1 mL DEPO PROVERA 01/30/2017 1 mL DEPO PROVERA 04/30/2017 1 mL DEPO PROVERA 08/06/2017 1.0 mL DEPO PROVERA 12/03/2017 1.0 mL DEPO PROVERA 03/04/2018 1.0 mL tolerated we ll. Due for next depo May 20- June 03 DEPO PROVERA 05/27/2018 1.0 mL DEPO PROVERA 08/13/2018 1.0 mL Medical (General) History Medical History History ICD Code GARCIA (nonalcoholic steatohepatitis) GARCIA (nonalcoholic steatohepatitis) K75. 81 Preclampsia--2020 Surgical History Surgery Date(Month/Year) x 2 umbilical hernia repair 2010 C section 08/28/2019
--- OUTSIDE RECORDS SUMMARY | 2024-09-29 15:01 | XMS_ITS | Clinical Summary ---
Author Organization [facility] [employer] [facility] Address [address] [place] [address] Care Team Providers Care House Fellow Name Role Phone Unavailable Primary Care Provider [...]
--- OUTSIDE RECORDS SUMMARY | 2024-09-29 15:01 | XMS_ITS | Clinical Summary ---
Author Organization [facility] Address [address] [place] [address] Care Team Providers Care Diesel Motor Mechanic Name Role Phone Kristie Bishop Primary Care Provider [phone] Allergies No known active allergies Medications VITAFOL-ONE [...] topic Insurance MEDICAID HUSKY A Care Teams Diesel Motor Mechanic Relationship Specialty Start Date End Date Kristie Bishop [address] [place] [address] [address] [place] [address] PCP - General Internal Medicine 10/05/19
--- OUTSIDE RECORDS SUMMARY | 2024-09-29 15:01 | XMS_ITS | Encounter Summary ---
Author Organization [facility] Address [address] [place] [address] Care Team Providers Care Pie Maker Name Role Phone Benito Calvillograce More CNM Primary Care Provider [phone] Provider, Unknown Unavailable [phone] Bryanna Herrmann MD Primary Care Provider [phone] Greta Gray LPCA Unavailable [phone] Carrie Hunt CLASSICS PROFESSOR Unavailable [phone] Unknown Primary Care Provider [phone] Encounter Details Date Type Department Care Team (Late st Contact Info) Description 05/20/2019 Prep for Surgery OBGYN IP [address] [place] [phone] Bryanna Herrmann MD [address] [place] [phone] History of delivery (Primary Dx) Social History [...] Primary documented in this encounter Care Teams Pie Maker Relationship Specialty Start Date End Date Viridiana Calvillo CNM [address] [place] [address] [place] [address] PCP - General Obstetrics and Gynecology 02/01/19 08/31/19 Bryanna Herrmann MD 1 DO NOT USE THIS RECORD PCP - General Obstetrics and Gynecology 09/01/19 12/28/22 Unknown Unknow Provider Address PCP - General 12/29/22 Provider, Unknown 1 DO NOT USE THIS RECORD 02/01/19 Greta Gray LPCA 1 DO NOT USE THIS RECORD Clinician Social Work 10/05/19 11/29/20 Carrie Hunt APRN [address] [place] [address] Primary BH Attending Psychiatry, General 10/28/19 documented as of this encounter
--- OUTSIDE RECORDS SUMMARY | 2024-09-29 15:01 | XMS_ITS | Encounter Summary ---
Author Organization [facility] Address [address] [place] [address] Care Team Providers Care Manufacturing Assembler Name Role Phone Provider, Unknown Unavailable [phone] Bryanna Herrmann MD Primary Care Provider [phone] Greta Gray LPCA Unavailable [phone] Carrie Hunt BIOSTATISTICIAN Unavailable Unknown Primary Care Provider [phone] Encounter Details Date Type Department Care Team (Late st Contact Info) Description 07/31/2020 Lab Requisition [facility] Through [address] [place] [phone] Reinaldo Bae, PAChrissyC [address] [place] [address] Encounter for laboratory testing for COVID-19 virus [...] Murphy Corona, Ph.D., Laboratory DirectorTests performed at [facility] Nasopharyngeal swab / Unknown 07/31/2020 11:45 AM EST 07/31/2020 11:45 AM EST Narrative SANTIAGOLou QUINONEZ - 08/01/2020 6:12 PM EST Performed by [facility] [address] [place] [address], CLIA# [id number] and [place] License# [id number] Reinaldo Bae PA-C MICROBIOLOGY - NERAL ORDERABLES YEE QUINONEZ documented in this encounter Visit Diagnoses Diagnosis Encounter for laboratory testing for COVID-19 virus documented in this encounter Care Teams Manufacturing Assembler Relationship Specialty Start Date End Date Bryanna Herrmann MD 1 DO NOT USE THIS RECORD PCP - General Obstetrics and Gynecology 09/01/19 12/28/22 Unknown Unknow Provider Address PCP - General 12/29/22 Provider, Unknown 1 DO NOT USE THIS RECORD 02/01/19 Greta Gray, ZACHERY 1 DO NOT USE THIS RECORD Clinician Social Work 10/05/19 11/29/20 Carrie Hunt APRN [address] [place] [address] Primary BH Attending Psychiatry, General 10/28/19 documented as of this encounter
--- OUTSIDE RECORDS SUMMARY | 2024-09-29 15:01 | XMS_ITS | Encounter Summary ---
Author Organization [facility] Address [address] [place] [address] Care Team Providers Care Meat Packager Name Role Phone Provider, Unknown Unavailable [phone] Bryanna Herrmann MD Primary Care Provider Greta Gray LPCA Unavailable [phone] Carrie Hunt FIELD MECHANICAL METER TESTER Unavailable [phone] Unknown Primary Care Provider [phone] Encounter Details Date Type Department Care Team (Late st Contact Info) Description 08/06/2020 Lab Requisition [facility] Through [address] [place] [phone] Reinaldo Bae, PAChrissyC [address] [place] [address] Encounter for laboratory testing for COVID-19 virus [...] Date/Time Associated Diagnosis Comments COVID-19 (SARS-COV-2) - [facility] LAB Routine 08/06/2020 12:45 PM EST Encounter for laboratory testing for COVID-19 virus [ICD-10-CM] documented in this encounter Results * COVID-19 (SARS-COV-2) ([facility]) (08/06/2020 12:45 PM EST) COVID-19 RT-PCR NOT-DETEC TAMARA Not-Detec tamara 08/07/2020 6:18 PM EST [facility] RACHEL QUINONEZ Comment:Interpretation: The viral RNA was not detected, making the COVID-19 diagnosis less likely. Clinical correlation is highly recommended.Final report signed by Murphy Corona, Ph.D., Laboratory DirectorTests performed at [facility] Nasopharyngeal swab / Unknown 08/06/2020 12:45 PM EST 08/06/2020 12:45 PM EST Narrative SANTIAGOLou QUINONEZ - 08/07/2020 6:18 PM EST Performed by [facility] [address] [place] [address], CLIA# [id number] and [place] License# [id number] Reinaldo Bae PA-C MICROBIOLOGY - NERAL ORDERABLES YEE QUINONEZ documented in this encounter Visit Diagnoses Diagnosis Encounter for laboratory testing for COVID-19 virus documented in this encounter Care Teams Meat Packager Relationship Specialty Start Date End Date Bryanna Herrmann MD 1 DO NOT USE THIS RECORD PCP - General Obstetrics and Gynecology 09/01/19 12/28/22 Unknown Unknow Provider Address PCP - General 12/29/22 Provider, Unknown 1 DO NOT USE THIS RECORD 02/01/19 Greta Gray LPCA 1 DO NOT USE THIS RECORD Clinician Social Work 10/05/19 11/29/20 Carrie Hunt APRN [address] [place] [address] Primary BH Attending Psychiatry, General 10/28/19 documented as of this encounter
== END 2024-09-29 11:53 | disposition home or self-care (01) ==
LOC: HO.LAB 11:52
PROVIDERS: PCP Nurse Practitioner Family; Visit Provider Nurse Practitioner Family
DX: R53.83 Other fatigue (principal)
CPT/HCPCS: 99212

== ENCOUNTER 2024-09-29 11:52 | Outpatient (AMB) | payer OTHER, SELFPAY ==
--- NOTE | 2024-09-29 11:54 | MHC.PC.OV ---
Vital Signs 09/29/24 12:00 Height 5 ft 6 in Weight 178 lb BMI 28.7 BP 139/83 Blood Pressure Location Rt brachial Position Sitting Respiration 16 Pulse 61 Pulse Source Pulse Oximeter Temp 98.2 F Temp Source Oral Pulse Oximetry (%) 100 Oxygen Delivery Method Room Air Intake Visit Reasons: Tiredness, Sleeping problems Intake Note: patient here c/o tiredness and sleeping problems.yesterday she got dizzy and feeling like she wants to faint and nausea. County Historian Required: No Is last menstrual period known: Yes Last menstrual period: 09/23/24 Post menopausal: No Patient : No Allergies No Known Allergies Allergy (Verified 09/29/24 12:07) Medication List - Last Reconciled 09/29/24 by Nita Meza CNP nifedipine ER 30 mg PO DAILY Tobacco use date assessed: 09/29/24 Dental Screening Dental Screen Date: 09/29/24 Did you have a dental visit in the last 12 months?: No Did you have a dental problem in the last 6 months where you did not have access to dental care?: No Was dental information given to patient?: Patient has dentist HPI HPI Comments History of Present Illness Details 34-year-old female presents with complaints of feeling tiredness and sleepiness since yesterday morning. She notes that she had sore throat yesterday for with she took otc regimen that contains Tylenol and antihistamine; she became nausea and vomited once after taking the medication. She also experienced feeling of fainting after taking the medication. Her sore throat, nausea, and fainting feeling completely subsided. She continues to experience tiredness and sleepiness. 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 She denies sick contacts. He denies constitutional symptoms. Notes that she has been taking nifedipine ER 30 mg daily for hypertension. [facility] Medical History (Updated 09/29/24 @ 12:26 by Nita Meza CNP) delivery delivered High blood pressure Surgical History (Updated 06/30/24 @ 11:04 by VICENTE Hercules) History of endometrial ablation Family History (Updated 06/30/24 @ 11:24 by VICENTE Hercules) Father Asthma High blood pressure Cardiovascular disease Mother High blood pressure Diabetes Maternal Grandmother Diabetes Brother Asthma Sister Asthma Social History Housing: Apartment Patient Tobacco Use Status: Never used Tobacco e-Cigarette/Vaping Use: Currently Using Patient : No service: No Current occupational status: employed Current occupation: [employer] Cognitive needs: No Hearing needs: No Vision needs: No Female Reproductive History Menstrual Date of last menstrual period: 09/23/24 Questionnaire PHQ-9 Over the last 2 weeks, how often have you been bothered by any of the following problems? 1. Little interest or pleasure in doing things: not at all 2. Feeling down, depressed, or hopeless: not at all 3. Trouble falling or staying asleep, or sleeping too much: several days 4. Feeling tired or having little energy: nearly every day 5. Poor appetite or overeating: not at all 6. Feeling bad about yourself - or that you are a failure or have let yourself or your family down: not at all 7. Trouble concentrating on things, such as reading the newspaper or watching television: not at all 8. Moving or speaking so slowly that other people could have noticed. Or the opposite - being so fidgety or restless that you have been moving around a lot more than usual: not at all 9. Thoughts that you would be better off or of hurting yourself in some way: not at all Total score: 4 Depression Screening Interpretation: Negative Depression Screening Done: Yes Source: Developed by Drs. Modesto Navarrete, Delisa Suggs, Raúl Mai and colleagues, with an educational juanita from [employer]. Thrive Questionnaire Date Thrive assessed: 06/30/24 I am a: Patient What is your living situation today?: I have a steady place to live Within the past 12 months, did the food you bought not last and you didn't have the money to get more?: I choose not to answer this question Within the past 12 months, did you worry whether your food would run out before you got money to buy more?: I choose not to answer this question Do you have trouble paying for medicines?: I choose not to answer this question Do you have trouble getting transportation to medical appointments?: I choose not to answer this question Do you have trouble paying your heating and electricity bill?: I choose not to answer this question Do you have trouble taking care of your child, family member or friend?: I choose not to answer this question Do you have trouble with day-to-day activities such as bathing, preparing meals, shopping, managing finances, etc.?: I choose not to answer this question Are you currently unemployed and looking for a job?: I choose not to answer this question Are you interested in more education?: I choose not to answer this question Please select the resources that you would like help with: None Currently or been in a relationship where the following occur: I choose not to answer THRIVE Score: 0 AUDIT C Alcohol Use Questionnaire (AUDIT-C) 1. How often do you have a drink containing alcohol?: Never Total Score: 0 KELSEA-7 AMB Questionnaire KELSEA-7 Date KELSEA - 7 assessed: 06/30/24 Feeling nervous, anxious, or on edge: 0 = Not at all Not being able to stop or control worryin = Not at all Worrying too much about different things: 0 = Not at all Trouble relaxin = Not at all Being so restless that it is hard to sit still: 0 = Not at all Becoming easily annoyed or irritable: 0 = Not at all Feeling afraid as if something awful might happen: 0 = Not at all Total KELSEA-7 score (0-4 normal; 5-9 mild; 10-14 moderate; 15-21 severe): 0 Source: Developed by Drs. Modesto Navarrete, Delisa Suggs, Raúl Mai and colleagues, with an educational juanita from [employer]. Review of Systems Const Details: Const Denies chills, Reports fatigue, Denies fever(s), Denies headache(s) and Denies weakness ENT Denies dizziness and Denies headache(s) Card Denies chest pain, Denies lightheadedness, Denies dyspnea and Denies other (Palpitations) Resp Denies cough, Denies dyspnea, Denies wheezing and Denies other ( shortness of breath) GI Denies abdominal pain, Denies melena, Denies hematochezia, Denies change in bowel habits, Denies dyspepsia and Denies nausea Denies hematuria and Denies dysuria Musc Denies abnormal gait, Denies myalgias, Denies arthralgias, Denies numbness and Denies tingling Skin/Breast Denies rash, Denies unusual bruising and Denies wounds Neuro Denies abnormal gait, Denies dizziness, Denies headache(s), Denies memory loss, Denies numbness, Denies Sensory deficit (Neuro), Denies tingling and Denies weakness Psych Denies anxiety, Denies depression, Denies memory loss Endo Denies cold intolerance, Reports fatigue, Denies heat intolerance, Denies polydipsia and Denies polyuria Aller/Immun Denies wheezing Physical exam (Primary Care) Vital Signs: Last Vital Signs Temp 98.2 F 09/29/24 12:00 Pulse 61 09/29/24 12:00 Resp 16 09/29/24 12:00 BP 139/83 09/29/24 12:00 Pulse Ox 100 09/29/24 12:00 Oxygen Delivery Method Room Air 09/29/24 12:00 BMI result Body Mass Index 28.7 Tobacco/Smoking Status: Tobacco use Status Tobacco use date assessed 09/29/24 09/29/24 12:03 Patient Tobacco Use Status Never used Tobacco 09/29/24 11:56 e-Cigarette/Vaping Use Currently Using 09/29/24 11:56 PHQ-9: PHQ-9 Score PHQ-9: Total score 4 09/29/24 11:56 Depression Screening Interpretation: Negative Thrive Assessment: Date of Thrive Assessment Date Thrive assessed 06/30/24 09/29/24 11:56 Currently or been in a relationship where the following occur: I choose not to answer Const Other: General: no acute distress and well developed Nutritional Appearance: well nourished Orientation/consciousness: patient oriented x3 HENMT Head is normocephalic Bilateral ear canal and TM are normal Nasal turbinates and oropharynx are pink and moist Sinuses are nontender with palpation No auricular or cervical lymphadenopathy Eyes General: appearance normal, both eyes and all related structures Pupils: Equal, round and reactive pupils present EOM: EOMs intact bilaterally Resp Effort & Inspection: normal respiratory effort Auscultation: clear to auscultation bilaterally Cardio Rate: regular rate Rhythm: regular rhythm Heart sounds: S1 normal heart sound present, S2 normal heart sound present, no gallops, no murmurs and no rubs GI Palpation (GI): No Abdominal aortic bruit present, Soft to palpation, nontender, No hepatosplenomegaly present and No Rebound tenderness present Auscultation: normal bowel sounds General: Yes no CVA tenderness Back/Spine/Pelvis Back: no CVA tenderness Cervical Spine: cervical ROM normal and No Cervical spine tenderness Thoracic/Lumbar Spine: thoraco-lumbar ROM normal, No pain with thoraco-lumbar ROM, No thoracic spinal tenderness and No lumbar spinal tenderness Extrem General: Yes normal to inspection, No edema and No calf tenderness Skin General: warm and dry. Normal skin color. Normal skin turgor Neuro General: patient oriented x3, gait normal and no focal neuro deficit Cranial nerves: Yes Equal, round and reactive pupils present Cognition (Neuro): normal cognition Gait exam (Neuro): Normal gait present Sensory Exam: No Sensory deficit (Neuro) Psych Appearance: grossly normal Affect: normal affect Attitude: cooperative Thought process: Normal thought process present Coding Level of Care Code Est Pt Level 3 (97765) Diagnoses Fatigue R53.83 Assessment & Plan Assessment & Plan (1) Fatigue: Code(s): R53.83 - Other fatigue Category: Medical Plan: She has been experiencing fatigue since yesterday morning. She also had a sore throat, nausea, and vomiting which completely subsided. Her symptoms may be related to viral illness. 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 Will check CBC, BMP, TSH/T4, and vitamin D level to rule out organic cause. Nasal swab collected and will be tested for COVID/flu/RSV. Adequate hydration and rest encouraged. Advised to follow-up as scheduled later this month. Return sooner with symptoms or concerns. Verbalized understanding and agreed with treatment plan. Orders: Orders Basic Metabolic Panel Today R53.83 - Other fatigue TSH reflex Free T4 Today R53.83 - Other fatigue Vitamin D 25-OH Total Today R53.83 - Other fatigue Complete Blood Count no Diff Today R53.83 - Other fatigue SARS-CoV2/FLU/RSV Today R53.83 - Other fatigue
[2024-09-29 12:00] VITALS: BP 139/83; PULSE 61; RESP 16; TEMP 36.8; O2SAT 100; BMI 28.7
--- OUTSIDE RECORDS SUMMARY | 2024-09-29 14:29 | XMS_ITS | Clinical Summary ---
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 0 Active hydrocortisone 2.5 % cream 0 Active lidocaine (ZTlido) 1.8 % adhesive patch,medicatedI ndications:Chron ic pain in right shoulder Apply 1 patch topically daily. Keep on for 12 hrs then remove and leave off for 12 hrs 30 patch 1 2 Active Additional Information Patient not taking.Reported on 01/07/2023 diclofenac sodium (Voltaren) 1 % gel Apply topically 4 (four) times a day. 100 g 2 Active Additional Information Patient not taking.Reported on 01/07/2023 ondansetron (Zofran) 8 mg tabletIndication s:Nausea Take 1 tablet (8 mg total) by mouth every 8 (eight) hours as needed for nausea or vomiting. 90 tablet 3 Active Additional Information Patient not taking.Reported on 01/07/2023 COVID-19 antigen test (COVID-19 At-Home Test) kitIndications:F ever, unspecified fever cause,Nausea,Gen eralized body aches 1 Package once as needed (fever, cough) for up to 1 dose. 2 kit 1 3 Active Additional Information Patient not taking.Reported on 01/07/2023 iron,carbonyl-vi tamin C 65 mg iron- 125 mg tablet,delayed release (DR/EC) Take 1 tablet by mouth in the morning. 90 tablet 2 3 Active Additional Information Patient not taking.Reported on 01/07/2023 PARoxetine (PAXIL) 10 mg tablet take 1/2 tablet by oral route every bedtime for 1 week. then 1 whole tablet at bedtime 30 tablet 3 Active Additional Information Patient not taking.Reported on 10/30/2023 ergocalciferol (VITAMIN D2) 1,250 mcg (50,000 unit) capsuleIndicatio ns:Vitamin D deficiency Take 1 capsule (50,000 Units total) by mouth once a week. 12 capsule 3 4 11/02/19 25 Active Active Problems Problem Noted Date Diagnosed Date Anemia 12/23/2022 Abnormal vaginal bleeding 12/22/2022 Menometrorrhagia 12/15/2022 Eczema of both hands 05/16/2022 Palpitations 04/26/2020 Assessment & Plan (04/26/2020 2:44 PM EDT): Ms. Savage has palpitations characterized by isolated skipped beats, typically when she is resting. These have the trappings of benign PVCs. She has never had syncope or near syncope. She does not have sustained, rapid heart beating. I provided reassurance that these are almost always benign, and that no further warranted. Essential hypertension 02/01/2020 Assessment & Plan (04/26/2020 2:43 PM EDT): I reviewed Ms. Savage' blood pressure recordings over the past 1 to 2 months. These indicate systolics in the one teens to 130s. There were no values that were extremely high. He is already been taking nifedipine. This is a medication that is often used with eclampsia and preeclampsia. I would not recommend any medication changes at this time. I think that if she can lose some weight and reduce her dietary sodium, her blood pressure will remain under good control. If additional therapy is needed in the future, the population often responds to low-dose HCTZ or chlorthalidone, so this would be another option., Today, no changes will be made in her regimen. Dislocation of shoulder, recurrent, right 2019 Anxiety 02/01/2020 History of pre-eclampsia 09/01/2019 Immunizations Name Administration Dates Next Due COVID-19 mRNA (PFIZER) 06/27/2021,12/06/2020, Influenza (IM) Preservative Free 06/25/2016 Influenza TIV (IM) 05/20/2018 Influenza, Quadrivalent 06/01/2020 Tdap 07/06/2019,01/07/2018 Family History Medical History Relation Comments Congenital heart disease Brother Heart disease Maternal Grandfather Hypertension Maternal Grandfather Neuroblastoma Maternal Grandfather Atrial fibrillation Maternal Grandmother Hypertension Maternal Grandmother Stroke Maternal Grandmother Stroke Maternal Great-Grandfather Throat cancer Maternal Great-Grandmother Diabetes Mother Atrial fibrillation Mother's Brother Hypertension Mother's Sister Breast cancer Other Relation Status Comments Brother Maternal Grandfather Maternal Grandmother Maternal Great-Grandfather Maternal Great-Grandmother Mother Mother's Brother Mother's Sister Other Alive Social History Tobacco Use Types Packs/Day Years Used Date Smoking Tobacco: Former Smokeless Tobacco: Never Tobacco Cessation:Counseling Given: Not Answered Alcohol Use Standard Drinks/Week Comments Never 0 (1 standard drink = 0.6 oz pur e alcohol) AUDIT-C Answer Date Recorded Q1: How often do you have a drink containing alc ohol? Never 10/05/2019 Average Number of Drinks Not on file 020 Frequency of Binge Drinking Not on file 09/24 Comments No Sex and Gender Information Value Date Recorded Sex Assigned at Female 10/30/2023 2:00 PM EDT Legal Sex Female 5:34 AM EST Gender Identity Female 10/30/2023 2:00 PM EDT Sexual Orientation Straight 10/30/2023 2: 00 PM EDT Last Filed Vital Signs Vital Sign Reading Time Taken Comments Blood Pressure 127/88 10/30/2023 1:58 PM EDT Pulse 60 10/30/2023 1:58 PM EDT Temperature 36.8 ??C (98.2 ??F) 10/30/2023 1:58 PM ED T Respiratory Rate 16 04/26/2020 1:23 PM EDT Oxygen Saturation 98% 10/30/2023 1:58 PM EDT Inhaled Oxygen Concentration - - Weight 76.7 kg (169 lb 1.6 oz) 10/30/2023 1:58 P M EDT Height 167.6 cm (5' 6 ) 10/30/2023 1:58 PM EDT Body Mass Index 27.29 10/30/2023 1:58 PM EDT Plan of Treatment Health Maintenance Due Date Last Done Comments HIV Screening 1989 Hepatitis C Screening 2007 Hepatitis B Vaccines (1 of 3 - 19+ 3-dose series) 01/30/2008 HPV/Cotest 2019 COVID-19 Vaccine (4 - 2023-2 5 season) 2024 06/27/2021, 12/06/2020, 11/15/2020 Influenza Vaccine (#1) 2024 , 05/20/2018, 06/25/2016 Cervical Cancer Screening 12/15/2025 Pap Smear 12/15/2025 12/15/2022 DTaP,Tdap,and Td Vaccines (3 - Td or Tdap) 07/06/2029 07/06/2019, 01/07/2018 Zoster Vaccines (1 of 2) 2039 HPV Vaccines Aged Out No longer eligi ble based on patient's age to complete this topic Hepatitis A Vaccines Aged Out No long er eligible based on patient's age to complete this topic MMR Vaccines Aged Out No longer eligi ble based on patient's age to complete this topic Meningococcal Vaccine Aged Out No antonio rukhsana eligible based on patient's age to complete this topic Pneumococcal Vaccine: Pediatrics (0 to 5 Years) and At-Risk Patients (6 to 64 Years) Aged Out No longer eligible b ased on patient's age to complete this topic Insurance MEDICAID HUSKY A Care Teams Metal 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
--- OUTSIDE RECORDS SUMMARY | 2024-09-29 14:29 | XMS_ITS | Clinical Summary ---
Author Organization [facility] Address [address] [place] [address] Care Team Providers Care Diesel Dinkey Operator Name Role Phone Provider, Unknown Unavailable [phone] Unknown Primary Care Provider [phone] Allergies No known active allergies Medications Medication Sig Dispensed Refills Start Date End Date Status ibuprofen (MOTRIN) 600 MG tabletIndications:A bnormal vaginal bleeding Take 1 tablet (600 mg total) by mouth 4 times daily (every 6 hours) as needed for mild pain. 30 tablet 02/16/2023 Active cephalexin (KEFLEX) 500 MG capsule Take 1 capsule (500 mg total) by mouth 4 (four) times a day. 20 capsule 05/21/2023 Active fexofenadine (ARVIN) 180 MG tabletIndications:P ruritus Take 1 tablet (180 mg total) by mouth daily. Administer with water only; do not administer with fruit juices. 30 tablet 08/26/2023 Active triamcinolone (KENALOG) 0.5 % creamIndications:Pr uritus Apply topically 2 (two) times a day. 30 g 08/26/2023 Active Active Problems Problem Noted Date Diagnosed Date Menorrhagia with regular cycle 03/09/2023 Other specified anemias 12/23/2022 Anemia 12/23/2022 Abnormal vaginal bleeding 12/22/2022 Menometrorrhagia 12/15/2022 Post- depression 11/04/2019 Generalized anxiety disorder 11/04/2019 Acute stress disorder 11/04/2019 Preeclampsia 09/01/2019 Term 08/28/2019 control counseling 08/01/2019 Overview (08/01/2019): Desires tubal Hypertension 08/01/2019 Hx of macrosomia, infant of prior , currently 08/01/2019 Overview (08/01/2019): G1 10# baby History of delivery 05/05/2019 Overview (05/20/2019): Added automatically from request for surgery [id number] Resolved Problems Problem Noted Date Diagnosed Date Resolved Date Encounter for annual physica l examination excluding gynecological examination in a patient older than 17 years 12/15/2022 10/07/2023 Family History Medical History Relation Name Comments No Known Problems Mother Relation Name Status Comments Mother Alive Social History Tobacco Use Types Packs/Day Years Used Date Smoking Tobacco: Some Days Cigarettes Smokeless Tobacco: Never Tobacco Cessation:Ready to Q uit: Not Asked; Counseling Given: Not Answered Alcohol Use Standard Drinks/Week Comments Never 0 (1 standard drink = 0.6 oz pur e alcohol) AUDIT-C Answer Date Recorded Q1: How often do you have a drink containing alcohol? Never 02/05/2023 Q2: How many drinks containi ng alcohol do you have on a typical day when you are drinking? Patient does not drink Q3: How often do you have si x or more drinks on one occasion? Never 02/05/2023 Sex and Gender Information Value Date Recorded Sex Assigned at Female 12/21/2022 6:53 PM EDT Gender Identity Female 12/21/2022 6:53 PM EDT Sexual Orientation Heterosexual (straight) 12/21 6:53 PM EDT Last Filed Vital Signs Vital Sign Reading Time Taken Comments Blood Pressure 141/93 08/26/2023 4:35 PM EST Pulse 66 08/26/2023 4:35 PM EST Temperature 36.5 ??C (97.7 ??F) 08/26/2023 4:35 PM ES T Respiratory Rate 16 05/21/2023 3:45 PM EDT Oxygen Saturation 100% 08/26/2023 4:35 PM EST Inhaled Oxygen Concentration - - Weight 74.4 kg (164 lb) 08/26/2023 4:35 PM EST Height 167.6 cm (5' 6 ) 08/26/2023 4:35 PM EST Body Mass Index 26.47 08/26/2023 4:35 PM EST Plan of Treatment Health Maintenance Due Date Last Done Comments Hepatitis C Virus Screening 1989 HIV Screening 2002 DTaP/Tdap/Td Vaccines (1 - Tdap) 01/30/2008 Hepatitis B Vaccines (1 of 3 - 19+ 3-dose series) 01/30/2008 Pneumococcal Vaccine: Pediatric (0-5 Years) and At-Risk Patients (6 to 49 Years) (1 of 2 - PCV) 01/30/2008 Influenza Vaccine 02/25/2024 06/01/2020 COVID-19 Vaccine (2023-2 5 season) 2024 06/27/2021, 12/06/2020, 11/15/2020 Pap Smear (Ages 21-65) 12/15/2025 12/15/2022 HPV Vaccines Aged Out No longer eligi ble based on patient's age to complete this topic Procedures Procedure Name Priority Date/Time Associated Diagnosis Comments THINPREP PAP TEST ([employer]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 Ray Lincoln MD LAB AMB PATH/CYTO OR DERABLES [facility] [address] [place] [address], [place] from Last 3 Months or Most Recently Relevant to Health Maintenance Advance Directives * Full Code (Latest Code Status on File) Date Activated Date Inactivated Comments 02/16/2023 7:07 AM 05/21/2023 10:56 AM * Full Code Date Activated Date Inactivated Comments 12/22/2022 1:10 AM 12/29/2022 8:33 PM * Full Code Date Activated Date Inactivated Comments 09/01/2019 9:55 AM 10/03/2019 1:22 AM * Full Code Date Activated Date Inactivated Comments 09/01/2019 2:26 AM 09/01/2019 9:55 AM * Full Code Date Activated Date Inactivated Comments 08/28/2019 8:07 AM 09/01/2019 2:10 AM Healthcare Agents on File Name Relationship Healthcare Agent [facility] p Communication Refugio Mortonantonio Spouse 4. Next of K in (Spouse, Adult Child, Parent, Adult Sibling, Grandparent) Care Teams Diesel Dinkey Operator Relationship Specialty Start Date End Date Unknown Unknow Provider Address PCP - General 12/29/22 Provider, Unknown 1 DO NOT USE THIS RECORD 02/01/19
--- OUTSIDE RECORDS SUMMARY | 2024-09-29 14:29 | XMS_ITS | Encounter Summary ---
Author Organization [facility] Address [address] [place] [address] Care Team Providers Care Fiberglass Technician Name Role Phone Benito Calvillograce More CNM Primary Care Provider [phone] Provider, Unknown Unavailable [phone] Bryanna Herrmann MD Primary Care Provider [phone] Greta Gray LPCA Unavailable [phone] Carrie Hunt TREE FELLER OPERATOR Unavailable [phone] Unknown Primary Care Provider [phone] Encounter Details Date Type Department Care Team (Late st Contact Info) Description 05/20/2019 Prep for Surgery OBGYN IP [address] [place] [phone] Bryanna Herrmann MD [address] [place] [phone] History of delivery (Primary Dx) Social History Tobacco Use Types Packs/Day Years Used Date Smoking Tobacco: Never Smokeless Tobacco: Never Alcohol Use Standard Drinks/Week Comments Never 0 (1 standard drink = 0.6 oz pur e alcohol) AUDIT-C Answer Date Recorded Frequency of Alcohol Consumption Never 02/22/2019 Average Number of Drinks Not on file 019 Frequency of Binge Drinking Not on file 01/26 Comments Yes Sex and Gender Information Value Date Recorded Sex Assigned at Female 12/21/2022 6:53 PM EDT Gender Identity Female 12/21/2022 6:53 PM EDT Sexual Orientation Heterosexual (straight) 12/21 6:53 PM EDT documented as of this encounter Plan of Treatment Not on file documented as of this encounter Visit Diagnoses Diagnosis History of delivery- Primary documented in this encounter Care Teams Fiberglass Technician Relationship Specialty Start Date End Date Viridiana Calvillo CNM [address] [place] [address] [place] [address] PCP - General Obstetrics and Gynecology 02/01/19 08/31/19 Bryanna Herrmann MD 1 DO NOT USE THIS RECORD PCP - General Obstetrics and Gynecology 09/01/19 12/28/22 Unknown Unknow Provider Address PCP - General 12/29/22 Provider, Unknown 1 DO NOT USE THIS RECORD 02/01/19 Greta Gray LPCA 1 DO NOT USE THIS RECORD Clinician Social Work 10/05/19 11/29/20 Carrie Hunt APRN [address] [place] [address] Primary BH Attending Psychiatry, General 10/28/19 documented as of this encounter
--- OUTSIDE RECORDS SUMMARY | 2024-09-29 14:29 | XMS_ITS | Clinical Summary ---
Author Organization [facility] Address [address] [place] [address] Care Team Providers Care Clinical Informatics Specialist Name Role Phone Unavailable Primary Care Provider Unavailabl e Social History Tobacco Use Types Packs/Day Years Used Date Smoking Tobacco: Never Assessed Sex and Gender Information Value Date Recorded Sex Assigned at Female 10/12/2023 4:37 PM EDT Gender Identity Female 10/12/2023 4:37 PM EDT Sexual Orientation Not on file Job Start Date Occupation Industry Not on file Not on file Not on file Plan of Treatment Health Maintenance Due Date Last Done Comments Hepatitis B Vaccines (1 of 3 - 3-dose series) 1989 Hepatitis C Screening 1989 Depression Screening 2001 Preventative Health Evaluation 2007 Cervical Cancer Screening (Pap Smear) 2010 COVID-19 Vaccine (4 2023-2 5 season) 2024 06/27/2021, 12/06/2020, 11/15/2020 Influenza Vaccine (#1) 2024 0, 05/20/2018 DTap / Tdap / Td (3 - Td or Tdap) 07/06/2029 07/06/2019, 01/07/2018 Pneumococcal Vaccine Aged Out No long er eligible based on patient's age to complete this topic RSV Ped < 20 months Aged Out No longe r eligible based on patient's age to complete this topic
--- OUTSIDE RECORDS SUMMARY | 2024-09-29 14:30 | XMS_ITS | Encounter Summary ---
Author Organization [facility] Address [address] [place] [address] Care Team Providers Care Flight Operations Engineer Name Role Phone Provider, Unknown Unavailable [phone] Bryanna Herrmann MD Primary Care Provider Greta Gray LPCA Unavailable Carrie Hunt SPEECH AND DRAMA TEACHER Unavailable Unknown Primary Care Provider [phone] Encounter Details Date Type Department Care Team (Late st Contact Info) Description 10/16/2020 Lab Requisition [facility] Through [address] [place] [phone] Mike Frank MD [address] [place], [place] [phone] Encounter for laboratory testing for COVID-19 virus Social History Tobacco Use Types Packs/Day Years Used Date Smoking Tobacco: Never Smokeless Tobacco: Never Alcohol Use Standard Drinks/Week Comments Never 0 (1 standard drink = 0.6 oz pur e alcohol) AUDIT-C Answer Date Recorded Frequency of Alcohol Consumption Never 02/22/2019 Average Number of Drinks Not on file 019 Frequency of Binge Drinking Not on file 01/26 Sex and Gender Information Value Date Recorded Sex Assigned at Female 12/21/2022 6:53 PM EDT Gender Identity Female 12/21/2022 6:53 PM EDT Sexual Orientation Heterosexual (straight) 12/21 6:53 PM EDT COVID-19 Exposure Response Date Recorded In the last month, have you been in contact with someone who was confirmed or suspected to have Coronavirus / COVID-19? Unable to assess 10/16/2020 12:43 PM EDT documented as of this encounter Plan of Treatment Not on file documented as of this encounter Procedures Procedure Name Priority Date/Time Associated Diagnosis Comments COVID-19 (SARS-COV-2) - [facility] Routine 10/16/2020 12:43 PM EDT Encounter for laboratory testing for COVID-19 virus [ICD-10-CM] documented in this encounter Results * COVID-19 (SARS-COV-2) ([facility]) (10/16/2020 12:43 PM EDT) COVID-19 RT-PCR NOT-DETEC TAMARA Not-Detec tamara 10/17/2020 2:52 PM EDT [facility] RACHEL QUINONEZ Comment:Interpretation: The viral RNA was not detected, making the COVID-19 diagnosis less likely. Clinical correlation is highly recommended.Final report signed by Murphy Corona, Ph.D., Laboratory DirectorTests performed at [facility] Nasopharyngeal swab / Unknown 10/16/2020 12:43 PM EDT 10/16/2020 12:43 PM EDT Narrative [facility] - 10/17/2020 2:52 PM EDT Performed by [facility] [address] [place] [address], CLIA# [id number] and [place] License# [id number] Mike Frank MD MICROBIOLOGY - GENER AL ORDERABLES YEE QUINONEZ documented in this encounter Visit Diagnoses Diagnosis Encounter for laboratory testing for COVID-19 virus documented in this encounter Care Teams Flight Operations Engineer Relationship Specialty Start Date End Date Bryanna Herrmann MD 1 DO NOT USE THIS RECORD PCP - General Obstetrics and Gynecology 09/01/19 12/28/22 Unknown Unknow Provider Address PCP - General 12/29/22 Provider, Unknown 1 DO NOT USE THIS RECORD 02/01/19 Greta Gray LPCA 1 DO NOT USE THIS RECORD Clinician Social Work 10/05/19 11/29/20 Carrie Hunt APRN [address] [place] [address] Primary BH Attending Psychiatry, General 10/28/19 documented as of this encounter
--- OUTSIDE RECORDS SUMMARY | 2024-09-29 14:30 | XMS_ITS | Clinical Summary ---
Author Organization [facility] ity Address [address] [place] [address] Care Team Providers Care Coil Repair Technician Name Role Phone Unavailable Primary Care Provider Unavailabl e Social History Tobacco Use Types Packs/Day Years Used Date Smoking Tobacco: Never Assessed Comments Unknown Sex and Gender Information Value Date Recorded Sex Assigned at Not on file Legal Sex Female 4:58 PM EDT Gender Identity Not on file Sexual Orientation Not on file Plan of Treatment Health Maintenance Due Date Last Done Comments DTaP,Tdap,and Td Vaccines (1 - Tdap) 01/30/2008 Hepatitis B Vaccines (1 of 3 - 19+ 3-dose series) 01/30/2008 Cervical Cancer Screening: P ap Smear 2010 Depression Screening 02/24/2024 HIV Screening 02/24/2024 Hepatitis C Screening 02/24/2024 Social Influencers of Health Screening 02/24/2024 COVID-19 Vaccine ( - 2023-2 5 season) 2024 Influenza Vaccine (#1) 2024 HIB Vaccines Aged Out No longer eligi ble based on patient's age to complete this topic HPV Vaccines Aged Out No longer eligi ble based on patient's age to complete this topic Hepatitis A Vaccines Aged Out No long er eligible based on patient's age to complete this topic IPV Vaccines Aged Out No longer eligi ble based on patient's age to complete this topic MMR Vaccines Aged Out No longer eligi ble based on patient's age to complete this topic Meningococcal ACWY Vaccine Aged Out N o longer eligible based on patient's age to complete this topic Meningococcal B Vacine Aged Out No lo nger eligible based on patient's age to complete this topic Pneumococcal Vaccine: Pediat rics (0 to 5 Years) and At-Risk Patients (6 to 64 Years) Aged Out No longer eligible b ased on patient's age to complete this topic RSV Immunization Patients Un lisa 20 months Aged Out No longer eligible b ased on patient's age to complete this topic Varicella Vaccines Aged Out No longer eligible based on patient's age to complete this topic
--- OUTSIDE RECORDS SUMMARY | 2024-09-29 14:30 | XMS_ITS | Encounter Summary ---
Author Organization [facility] Address [address] [place] [address] Care Team Providers Care It Assistant Name Role Phone Provider, Unknown Unavailable [phone] Bryanna Herrmann MD Primary Care Provider Greta Gray LPCA Unavailable Carrie Hunt AED TRAINER Unavailable Unknown Primary Care Provider [phone] -[phone] Encounter Details Date Type Department Care Team (Late st Contact Info) Description 08/06/2020 Lab Requisition [facility] Through [address] [place] [phone] Reinaldo Bae, PAChrissyC [address] [place] [address] Encounter for laboratory testing for COVID-19 virus [...] have Coronavirus / COVID-19? Unable to assess 08/06/2020 12:45 PM EST documented as of this encounter Plan of Treatment Not on file documented as of this encounter Procedures Procedure Name Priority Date/Time Associated Diagnosis Comments COVID-19 (SARS-COV-2) - [facility] Routine 08/06/2020 12:45 PM EST Encounter for laboratory testing for COVID-19 virus [ICD-10-CM] documented in this encounter Results * COVID-19 (SARS-COV-2) ([facility]) (08/06/2020 12:45 PM EST) COVID-19 RT-PCR NOT-DETEC TAMARA Not-Detec tamara 08/07/2020 6:18 PM EST [facility] RACHEL QUINONEZ Comment:Interpretation: The viral RNA was not detected, making the COVID-19 diagnosis less likely. Clinical correlation is highly recommended.Final report signed by Murphy Corona, Ph.D., Laboratory DirectorTests performed at [facility]biology Nasopharyngeal swab / Unknown 08/06/2020 12:45 PM EST 08/06/2020 12:45 PM EST Narrative [facility] QUIN[facility] - 08/07/2020 6:18 PM EST Performed by [facility] [address] [place] [address], CLIA# [id number] and [place] License# [id number] Reinaldo Bae PA-C MICROBIOLOGY - NERAL ORDERABLES YEE QUINONEZ documented in this encounter Visit Diagnoses Diagnosis Encounter for laboratory testing for COVID-19 virus documented in this encounter Care Teams It Assistant Relationship Specialty Start Date End Date Bryanna Herrmann MD 1 DO NOT USE THIS RECORD PCP - General Obstetrics and Gynecology 09/01/19 12/28/22 Unknown Unknow Provider Address PCP - General 12/29/22 Provider, Unknown 1 DO NOT USE THIS RECORD 02/01/19 Greta Gray LPCA 1 DO NOT USE THIS RECORD Clinician Social Work 10/05/19 11/29/20 Carrie Hunt APRN [address] [place] [address] Primary BH Attending Psychiatry, General 10/28/19 documented as of this encounter
--- OUTSIDE RECORDS SUMMARY | 2024-09-29 14:30 | XMS_ITS | Encounter Summary ---
Author Organization [facility] Address [address] [place] [address] Care Team Providers Care Issuer Name Role Phone Provider, Unknown Unavailable [phone] Bryanna Herrmann MD Primary Care Provider Greta Gray LPCA Unavailable [phone] Carrie Hunt DIGITAL STRATEGIST Unavailable [phone] Unknown Primary Care Provider [phone] -[phone] Encounter Details Date Type Department Care Team (Late st Contact Info) Description 07/31/2020 Lab Requisition [facility] Through [address] [place] [phone] Reinaldo Bae, PAChrissyC [address] [place] [address] Encounter for laboratory testing for COVID-19 virus [...] Date/Time Associated Diagnosis Comments COVID-19 (SARS-COV-2) - [facility] Routine 07/31/2020 11:45 AM EST Encounter for laboratory testing for COVID-19 virus [ICD-10-CM] documented in this encounter Results * COVID-19 (SARS-COV-2) ([facility]) (07/31/2020 11:45 AM EST) COVID-19 RT-PCR NOT-DETEC TAMARA Not-Detec tamara 08/01/2020 6:12 PM EST [facility] RACHEL Lowe SKYLERSYDNIE Comment:Interpretation: The viral RNA was not detected, making the COVID-19 diagnosis less likely. Clinical correlation is highly recommended.Final report signed by Murphy Corona, Ph.D., Laboratory DirectorTests performed at [facility] Nasopharyngeal swab / Unknown 07/31/2020 11:45 AM EST 07/31/2020 11:45 AM EST Narrative [facility] QUINONE[facility] - 08/01/2020 6:12 PM EST Performed by [facility] [address] [place] [address], CLIA# [id number] and [place] License# [id number] Reinaldo Bae PA-C MICROBIOLOGY - NERAL ORDERABLES YEE QUINONEZ documented in this encounter Visit Diagnoses Diagnosis Encounter for laboratory testing for COVID-19 virus documented in this encounter Care Teams Issuer Relationship Specialty Start Date End Date Bryanna Herrmann MD 1 DO NOT USE THIS RECORD PCP - General Obstetrics and Gynecology 09/01/19 12/28/22 Unknown Unknow Provider Address PCP - General 12/29/22 Provider, Unknown 1 DO NOT USE THIS RECORD 02/01/19 Greta Gray, ZACHERY 1 DO NOT USE THIS RECORD Clinician Social Work 10/05/19 11/29/20 Carrie Hunt APRN [address] [place] [address] Primary BH Attending Psychiatry, General 10/28/19 documented as of this encounter
== END 2024-09-29 12:27 | disposition home or self-care (01) ==
PROVIDERS: PCP Nurse Practitioner Family; Visit Provider Nurse Practitioner Family
DX: R53.83 Other fatigue (principal)

== ENCOUNTER 2024-09-29 12:40 | Outpatient (REF) | payer OTHER, SELFPAY ==
[2024-09-29 14:29] LABS: Hematocrit 37.5 % (37.0-47.0); Hemoglobin 12.1 g/dl (12.0-16.0); Mean Corpuscular HGB Conc 32.3 g/dl (31.0-35.0); Mean Corpuscular Hemoglobin 29.2 pg (27.0-33.0); Mean Corpuscular Volume 90.6 fL (80.0-98.0); Platelet Count 259 X10*3/uL (160-400); Red Blood Count 4.14 X10*6/uL (4.20-5.50); Red Cell Distribution Width 13.4 % (11.0-16.0); White Blood Count 5.8 X10*3/uL (4.8-10.8)
[2024-09-29 14:54] LABS: Alanine Aminotransferase 22 U/L (0-31); Albumin Level 4.1 g/dL (3.5-5.0); Alkaline Phosphatase 77 U/L (39-117); Anion Gap 10 (12-20); Aspartate Amino Transferase 93 U/L (5-31); Bilirubin Direct 0.1 mg/dL (0.0-0.5); Bilirubin Total 0.3 mg/dL (0.0-1.0); Blood Urea Nitrogen 11 mg/dL (9-16); Calcium 9.1 mg/dL (8.4-10.2); Carbon Dioxide 26 mmol/L (22-29); Chloride 108 mmol/L (96-108); Estimated Glomerular Filt Rate > 60; Glucose Random 91 mg/dL (60-115); Sodium 140 mmol/L (135-145); Total Protein 7.7 g/dL (6.5-8.0)
[2024-09-29 15:09] LABS: TSH reflex Free T4 1.75 uIU/mL (0.32-4.0); Vitamin D 25-OH Total 29.4 ng/mL (>30)
[2024-09-29 16:13] LABS: Influenza A PCR NEGATIVE (Negative); Influenza B PCR NEGATIVE (Negative); Resp Syncy Virus RNA Qual PCR NEGATIVE (Negative); SARS COV2 PCR INHOUSE NEGATIVE (Negative)
== END 2024-09-29 12:41 | disposition home or self-care (01) ==
LOC: HO.WFDLDS 12:40
PROVIDERS: Visit Provider Nurse Practitioner Family
DX: R53.83 Other fatigue (principal); E83.51 Hypocalcemia; R74.01 Elevation of levels of liver transaminase levels
CPT/HCPCS: 0241U; 36415; 80048; 80076; 82306; 84443; 85027; 99212

== ENCOUNTER 2024-10-21 11:39 | Outpatient (REF) | payer OTHER, SELFPAY ==
[2024-10-21 14:44] LABS: Calcium 8.9 mg/dL (8.4-10.2)
[2024-10-21 15:06] LABS: Vitamin D 25-OH Total 31.5 ng/mL (>30)
== END 2024-10-21 11:40 | disposition home or self-care (01) ==
LOC: HO.WFDLDS 11:39
PROVIDERS: Visit Provider Nurse Practitioner Family
DX: E83.51 Hypocalcemia (principal); R53.83 Other fatigue
CPT/HCPCS: 36415; 82306; 82310

== ENCOUNTER 2024-11-21 14:38 | Outpatient (AMB) | payer OTHER, SELFPAY ==
--- NOTE | 2024-11-21 15:24 | MHC.PC.OV ---
Vital Signs 11/21/24 15:30 11/21/24 15:33 Height 5 ft 6 in Weight 177 lb 6 oz BMI 28.6 BP 110/68 110/70 Blood Pressure Location Rt brachial Lt brachial Position Sitting Sitting Respiration 14 Pulse 67 Pulse Source Pulse Oximeter Temp 97.9 F Temp Source Temporal Artery Scan Pulse Oximetry (%) 98 Oxygen Delivery Method Room Air Intake Visit Reasons: DENISE from [facility] Intake Note: Bushra presents in the office today to transfer her care. Allergies No Known Allergies Allergy (Verified 11/21/24 15:25) Tobacco use date assessed: 11/21/24 Dental Screening Dental Screen Date: 11/21/24 Did you have a dental visit in the last 12 months?: Yes Did you have a dental problem in the last 6 months where you did not have access to dental care?: No Was dental information given to patient?: Patient has dentist HPI HPI Comments History of Present Illness Details This is a 34-year-old female with a past medical history of hypertension and hepatic steatosis presenting for a new patient visit. She transferred from my colleague because she would like to have a female primary care provider. She endorses eczema on the back of her hands that tends to flare around this time of the year with allergies and with hand washing. She applied topical hydrocortisone with partial relief. She also uses a moisturizer. She would like a referral to a female gynecology provider. She is overdue for an annual exam. She has 3 children ages 16, 10 in 5 years. Two years ago she was admitted due to menorrhagia induced anemia requiring a blood transfusion and ultimately endometrial ablation. She has periods once per month. They last 7 days. The 1st 3 days are heavy, but she is not soaking through pads. Patient was diagnosed with preeclampsia in 2019 when she was . She subsequently developed hypertension and has been taking nifedipine 30 mg daily. She is starting to exercise and eat healthier. Blood pressure is 110/70. She implemented these lifestyle changes a few weeks ago. Patient reports she was diagnosed with hepatic steatosis when she lived in [place]. She had an ultrasound done and elevated liver enzymes. She does not drink alcohol. Denies abdominal pain, nausea, vomiting, jaundice. ROS: Constitutional: No unexplained weight loss, fever, chills Eyes: No vision changes, blurry vision, double vision Respiratory: No shortness of breath Cardiovascular: No chest pain Neurologic: No headache, dizziness, syncope Psychiatric: No SI/HI. Physical exam: Constitutional: Alert, in no distress. Neck: Supple, Full range of motion. No lymphadenopathy. Respiratory: Clear to auscultation. Cardiovascular: S1 S2 regular. No murmur Skin: Dry, mildly erythematous skin on the back of the fingers and knuckles Extremities: Warm and well perfused. No clubbing, cyanosis or edema. Psychiatric: Normal mood and affect [facility] Medical History (Updated 11/21/24 @ 17:14 by WILFRID Monroe) Eczema Essential hypertension Hepatic steatosis delivery delivered High blood pressure Surgical History (Updated 11/21/24 @ 15:51 by WILFRID Monroe) History of umbilical hernia repair History of endometrial ablation Family History Father Asthma High blood pressure Cardiovascular disease Mother High blood pressure Diabetes Maternal Grandmother Diabetes Brother Asthma Sister Asthma Social History (Updated 11/21/24 @ 15:26 by Moriah Lucas MA) Housing: Apartment Alcohol intake: never Patient Tobacco Use Status: Never used Tobacco e-Cigarette/Vaping Use: Currently Using Second Hand Smoke Exposure: No service: No Current occupational status: employed Current occupation: [employer] Cognitive needs: No Hearing needs: No Vision needs: No Questionnaire PHQ-9 Over the last 2 weeks, how often have you been bothered by any of the following problems? 1. Little interest or pleasure in doing things: not at all 2. Feeling down, depressed, or hopeless: several days 3. Trouble falling or staying asleep, or sleeping too much: nearly every day 4. Feeling tired or having little energy: not at all 5. Poor appetite or overeating: not at all 6. Feeling bad about yourself - or that you are a failure or have let yourself or your family down: not at all 7. Trouble concentrating on things, such as reading the newspaper or watching television: nearly every day 8. Moving or speaking so slowly that other people could have noticed. Or the opposite - being so fidgety or restless that you have been moving around a lot more than usual: not at all 9. Thoughts that you would be better off or of hurting yourself in some way: not at all Total score: 7 Depression Screening Interpretation: Positive (Denies depression and anxiety.) Depression Screening Done: Yes 91848 - PHQ-9 Billing: Patient declined-do not bill Source: Developed by Drs. Modesto Navarrete, Delisa Suggs, Raúl Mai and colleagues, with an educational juanita from [employer]. Thrive Questionnaire Date Thrive assessed: 11/21/24 I am a: Patient What is your living situation today?: I have a steady place to live Within the past 12 months, did the food you bought not last and you didn't have the money to get more?: I choose not to answer this question Within the past 12 months, did you worry whether your food would run out before you got money to buy more?: I choose not to answer this question Do you have trouble paying for medicines?: I choose not to answer this question Do you have trouble getting transportation to medical appointments?: I choose not to answer this question Do you have trouble paying your heating and electricity bill?: I choose not to answer this question Do you have trouble taking care of your child, family member or friend?: I choose not to answer this question Do you have trouble with day-to-day activities such as bathing, preparing meals, shopping, managing finances, etc.?: I choose not to answer this question Are you currently unemployed and looking for a job?: I choose not to answer this question Are you interested in more education?: I choose not to answer this question Please select the resources that you would like help with: None Currently or been in a relationship where the following occur: I choose not to answer THRIVE Score: 0 AUDIT C Alcohol Use Questionnaire (AUDIT-C) 1. How often do you have a drink containing alcohol?: Never Total Score: 0 Score Reviewed/Action Taken: No KELSEA-7 AMB Questionnaire KELSEA-7 Date KELSEA - 7 assessed: 11/21/24 Feeling nervous, anxious, or on edge: 1 = Several days Not being able to stop or control worryin = Not at all Worrying too much about different things: 0 = Not at all Trouble relaxin = Several days Being so restless that it is hard to sit still: 2 = More than half the days Becoming easily annoyed or irritable: 0 = Not at all Feeling afraid as if something awful might happen: 0 = Not at all Total KELSEA-7 score (0-4 normal; 5-9 mild; 10-14 moderate; 15-21 severe): 4 Source: Developed by Drs. Modesto Navarrete, Delisa Suggs, Raúl Mai and colleagues, with an educational juanita from [employer]. KELSEA-7 Assessment Billing KELSEA-7 Assessment Tool: KELSEA-7 Assessment 51604 ACT Questionnaire In the past 4 weeks, how much of the time did your asthma keep you from getting as much done at work, school or at home?: None of the time Score: 5 Physical exam (Primary Care) Vital Signs: Last Vital Signs Temp 97.9 F 11/21/24 15:30 Pulse 67 11/21/24 15:30 Resp 14 11/21/24 15:30 BP 110/70 11/21/24 15:33 Pulse Ox 98 11/21/24 15:30 Oxygen Delivery Method Room Air 11/21/24 15:30 BMI result Body Mass Index 28.6 Tobacco/Smoking Status: Tobacco use Status Tobacco use date assessed 11/21/24 11/21/24 15:34 Patient Tobacco Use Status Never used Tobacco 11/21/24 15:34 e-Cigarette/Vaping Use Currently Using 11/21/24 15:34 PHQ-9: PHQ-9 Score PHQ-9: Total score 7 11/21/24 15:34 Depression Screening Interpretation: Positive (Denies depression and anxiety.) Thrive Assessment: Date of Thrive Assessment Date Thrive assessed 11/21/24 11/21/24 15:34 Currently or been in a relationship where the following occur: I choose not to answer Coding Level of Care Code Est Pt Level 4 (44428) Complex EM visit Add On G2211 Diagnoses Hepatic steatosis K76.0 Essential hypertension I10 Eczema L30.9 Additional Codes KELSEA-7 Assessment Billing - KELSEA-7 Assessment Tool: KELSEA-7 Assessment 99759 ([id number]) Assessment & Plan Assessment & Plan (1) Hepatic steatosis: Code(s): K76.0 - Fatty (change of) liver, not elsewhere classified Category: Medical Plan: Recommended avoidance of alcohol and following a low-cholesterol diet like the Mediterranean diet. Continue exercising regularly to promote healthy weight. Check liver ultrasound with elastography. (2) Essential hypertension: Code(s): I10 - Essential (primary) hypertension Category: Medical Plan: Well-controlled at this point. She will continue nifedipine ER 30 mg daily for now. If BP less than 110/70 she can try discontinuing her blood pressure medication. She monitors her blood pressure at home. Recommended resuming this if blood pressure is not less than 130/80. (3) Eczema: Code(s): L30.9 - Dermatitis, unspecified Category: Medical Plan: Sent triamcinolone cream. Apply twice daily for 7-10 days for flares. Recommended using this for only 7-10 days out of the month. Reviewed risks of topical steroid use. Use a topical emollient regularly to moisturize. Plan Follow up in 2 months. Orders: Orders US abdomen kirkpatrick w elastography Today K76.0 - Fatty (change of) liver, not elsewhere classified, Z87.19 - Personal history of other diseases of the digestive system, Z98.890 - Other specified postprocedural states Referrals [facility] Referral Z01.419 - Encounter for gynecological examination (general) (routine) without abnormal findings Medications: New triamcinolone acetonide 0.1% 1 appl topical BID 7 days PRN 30 grams 3RF eczema Patient Instructions: [phone] Dr. Chapa
[2024-11-21 15:30] VITALS: BP 110/68; PULSE 67; RESP 14; TEMP 36.6; O2SAT 98; BMI 28.6
[2024-11-21 15:33] VITALS: BP 110/70
--- OUTSIDE RECORDS SUMMARY | 2024-11-21 17:30 | XMS_ITS | Clinical Summary ---
Author Organization [facility] Address [address] [place] [address] Care Team Providers Care Boiler House Operator Name Role Phone Provider, Unknown Unavailable [phone] Unknown Primary Care Provider [phone] Allergies No known active allergies Medications * This document contains information received from the source organization and may not represent a complete record from that organization. ibuprofen (MOTRIN) 600 MG tabletIndicatio ns:Abnormal vaginal bleeding Take 1 tablet (600 mg total) by mouth 4 times daily (every 6 hours) as needed for mild pain. 30 tablet 3 Active cephalexin (KEFLEX) 500 MG capsule Take 1 capsule (500 mg total) by mouth 4 (four) times a day. 20 capsule 3 Active fexofenadine (ARVIN) 180 MG tabletIndicatio ns:Pruritus Take 1 tablet (180 mg total) by mouth daily. Administer with water only; do not administer with fruit juices. 30 tablet 4 Active triamcinolone (KENALOG) 0.5 % creamIndication s:Pruritus Apply topically 2 (two) times a day. 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 Never 02/05/2023 Comments No Sex and Gender Information Value Date Recorded Sex Assigned at Female 12/21/2022 6:53 PM EDT Legal Sex Female 5:07 PM EDT Gender Identity Female 12/21/2022 6:53 [...] 01/30/2008 Influenza Vaccine 02/25/2024 06/01/2020 COVID-19 Vaccine (4 - 2023-2 5 season) 2024 06/27/2021, 12/06/2020, 11/15/2020 Pap Smear (Ages 21-65) 12/15/2025 12/15/2022 HPV Vaccines Aged Out No longer eligi ble based on patient's age to complete this topic Procedures Procedure Name Priority Date/Time Associated Diagnosis Comments THINPREP PAP TEST (CLINICAL BIOSTATISTICIAN) WITH HPV REFLEX, GC/CT Routine 12/15/2022 3:19 [...] final report click the scan hyperlink below. us Ray Lincoln MD LAB AMB PATH/CYTO ORDERABLES Final Result [facility] [address] [place] [address], from Last 3 Months or Most Recently Relevant to Health Maintenance Insurance [facility] Advance Directives * Full Code (Latest Code [...] Comments 08/28/2019 8:07 AM 09/01/2019 2:10 AM Care Teams Boiler House Operator Relationship Specialty Start Date End Date Unknown Unknow Provider Address PCP - General 12/29/22 Provider, Unknown 1 DO NOT USE THIS RECORD 02/01/19
--- OUTSIDE RECORDS SUMMARY | 2024-11-21 17:30 | XMS_ITS | Clinical Summary ---
Author Organization [facility] Address [address] [place] [address] Care Team Providers Care Batching Operator Name Role Phone Unavailable Primary Care Provider [...]
--- OUTSIDE RECORDS SUMMARY | 2024-11-21 17:30 | XMS_ITS | Clinical Summary ---
Author Organization [facility] Address [address] [place] [address] Care Team Providers Care Senior Information Security Consultant Name Role Phone Kristie Bishop Primary Care Provider [phone] Allergies No known active allergies Medications VITAFOL-ONE 29 mg iron- 1 mg-200 mg capsule Take 1 capsule by mouth. 0 Active hydrocortisone 2.5 % cream 0 Active lidocaine (ZTlido) 1.8 % adhesive patch,medicated Indications:Chr onic pain in right shoulder Apply 1 patch topically daily. Keep on for 12 hrs then remove and leave off for 12 hrs 30 patch 1 2 Active Additional Information Patient not taking.Reported on 01/07/2023 diclofenac sodium (Voltaren) 1 % gel Apply topically 4 (four) times a day. 100 g 2 Active Additional Information Patient not taking.Reported on 01/07/2023 ondansetron (Zofran) 8 mg tabletIndicatio ns:Nausea Take 1 tablet (8 mg total) by mouth every 8 (eight) hours as needed for nausea or vomiting. 90 tablet 3 Active Additional Information Patient not taking.Reported on 01/07/2023 COVID-19 antigen test (COVID-19 At-Home Test) kitIndications: Fever, unspecified fever cause,Nausea,Ge neralized body aches 1 Package once as needed (fever, cough) for up to 1 dose. 2 kit 1 3 Active Additional Information Patient not taking.Reported on 01/07/2023 iron,carbonyl-v itamin C 65 mg iron- 125 mg tablet,delayed [...] ergocalciferol (VITAMIN D2) 1,250 mcg (50,000 unit) capsuleIndicati ons:Vitamin D deficiency Take 1 capsule (50,000 Units total) by mouth once a week. 12 capsule 3 4 11/02/19 25 Active Problems Problem Noted Date Diagnosed Date [...] Anxiety 02/01/2020 History of pre-eclampsia 09/01/2019 Immunizations Immunization Administration Dates Next Due COVID-19 mRNA (PFIZER) [...] season) 2024 06/27/2021, 12/06/2020, 11/15/2020 Influenza Vaccine (Season Ended) 2025 06/01/2020, 05/20/2018, 06/25/2016 Cervical Cancer Screening 12/15/2025 Pap [...] 5 Years) and At-Risk Patients (6 to 49 Years) Aged Out No longer eligible b ased on patient's age to complete this topic Insurance MEDICAID [employer] A Care Teams Senior Information Security Consultant Relationship Specialty Start Date End Date Kristie Bishop [address] [place] [address] [address] [place] [address] PCP - General Internal Medicine 10/05/19
--- OUTSIDE RECORDS SUMMARY | 2024-11-21 17:30 | XMS_ITS | Encounter Summary ---
Author Organization [facility] Address [address] [place] [address] Care Team Providers Care Airport Manager Name Role Phone Viridiana Calvillo CNM Primary Care Provider [phone] Provider, Unknown Unavailable [phone] Bryanna Herrmann MD Primary Care Provider [phone] Greta Gray LPCA Unavailable [phone] Carrie Hunt FIRE PREVENTION CHIEF Unavailable [phone] Unknown Primary Care Provider [phone] Encounter Details Date Type Department Care Team (Late st Contact Info) Description 05/20/2019 Prep for Surgery OBGYN IP [address] [place] [address] Bryanna Herrmann MD [address] [place] [address] History of delivery (Primary Dx) Social History [...] Primary documented in this encounter Care Teams Airport Manager Relationship Specialty Start Date End Date Viridiana Calvillo CNM [address] [place] [address] [address] [place] [address] PCP - General Obstetrics and Gynecology 02/01/19 08/31/19 Bryanna Herrmann MD 1 DO NOT USE THIS RECORD PCP - General Obstetrics and Gynecology 09/01/19 12/28/22 Unknown Unknow Provider Address PCP - General 12/29/22 Provider, Unknown 1 DO NOT USE THIS RECORD 02/01/19 Greta Gray LPCA 1 DO NOT USE THIS RECORD Clinician Social Work 10/05/19 11/29/20 Carrie Hunt APRN [address] [place] [address] Primary BH Attending Psychiatry, General 10/28/19 documented as of this encounter
--- OUTSIDE RECORDS SUMMARY | 2024-11-21 17:31 | XMS_ITS | Encounter Summary ---
Author Organization [facility] Address [address] [place] [address] Care Team Providers Care Auto Hiker Name Role Phone Provider, Unknown Unavailable [phone] Bryanna Herrmann MD Primary Care Provider [phone] Greta Gray LPCA Unavailable [phone] Carrie Hunt SHIRT CLOSER Unavailable [phone] Unknown Primary Care Provider [phone] Encounter Details Date Type Department Care Team (Late st Contact Info) Description 08/06/2020 Lab Requisition [facility] [address] Through [address] [place] [phone] Reinaldo Bae PA-C [address] [place] [address] Encounter for laboratory testing for COVID-19 virus [...] Binge Drinking Not on file 01/26 Comments No Sex and Gender Information Value [...] Date/Time Associated Diagnosis Comments COVID-19 (SARS-COV-2) - [facility] Routine 08/06/2020 12:45 PM EST Encounter for laboratory testing for COVID-19 virus [ICD-10-CM] documented in this encounter Results * COVID-19 (SARS-COV-2) ([facility]MA4) (08/06/2020 12:45 PM EST) COVID-19 RT-PCR NOT-DETEC TAMARA Not-Detec tamara 08/07/2020 6:18 PM EST YEE QUINONEZ Comment:Interpretation: The viral RNA was not detected, making the COVID-19 diagnosis less likely. Clinical correlation is highly recommended.Final report signed by Murphy Corona, Ph.D., Laboratory DirectorTests performed at [facility] Nasopharyngeal swab / Unknown 08/06/2020 12:45 PM EST 08/06/2020 12:45 PM EST Narrative YEE QUINONEZ - 08/07/2020 6:18 PM EST Performed by [facility] [address] [place] [address], CLIA# [id number] and [place] License# [id number] Reinaldo Bae PA-C MICROBIOLOGY - GENERAL OR DERABLES Final Result YEE QUINONEZ documented in this encounter Visit Diagnoses Diagnosis Encounter for laboratory testing for COVID-19 virus documented in this encounter Care Teams Auto Hiker Relationship Specialty Start Date End Date Bryanna Herrmann MD 1 DO NOT USE THIS RECORD PCP - General Obstetrics and Gynecology 09/01/19 12/28/22 Unknown Unknow Provider Address PCP - General 12/29/22 Provider, Unknown 1 DO NOT USE THIS RECORD 02/01/19 Greta Gray, ZACHERY 1 DO NOT USE THIS RECORD Clinician Social Work 10/05/19 11/29/20 Carrie Hunt APRN [address] [place] [address] Primary BH Attending Psychiatry, General 10/28/19 documented as of this encounter
--- OUTSIDE RECORDS SUMMARY | 2024-11-21 17:31 | XMS_ITS | Encounter Summary ---
Author Organization [facility] Address [address] [place] [address] Care Team Providers Care Assurance Associate Name Role Phone Provider, Unknown Unavailable [phone] Bryanna Herrmann MD Primary Care Provider [phone] Greta Gray LPCA Unavailable [phone] Carrie Hunt RAILROAD BRAKE OPERATOR Unavailable [phone] Unknown Primary Care Provider [phone] Encounter Details Date Type Department Care Team (Late st Contact Info) Description 07/31/2020 Lab Requisition [facility] [address] Through [address] [place] [phone] Reinaldo Bae PA-C [address] [place] [address] Encounter for laboratory testing for COVID-19 virus [...] Date/Time Associated Diagnosis Comments COVID-19 (SARS-COV-2) - [facility] Routine 07/31/2020 11:45 AM EST Encounter for laboratory testing for COVID-19 virus [ICD-10-CM] documented in this encounter Results * COVID-19 (SARS-COV-2) (SEMA) (07/31/2020 11:45 AM EST) COVID-19 RT-PCR NOT-DETEC TAMARA Not-Detec tamara 08/01/2020 6:12 PM EST [facility] - [place] Comment:Interpretation: The viral RNA was not detected, making the COVID-19 diagnosis less likely. Clinical correlation is highly recommended.Final report signed by Murphy Corona, Ph.D., Laboratory DirectorTests performed at [facility] Nasopharyngeal swab / Unknown 07/31/2020 11:45 AM EST 07/31/2020 11:45 AM EST Narrative [facility] - [place] - 08/01/2020 6:12 PM EST Performed by [facility] [address] [place] [address], CLIA# [id number] and [place] License# [id number] Reinaldo aBe PA-C MICROBIOLOGY - GENERAL OR DERABLES Final Result YEE QUINONEZ documented in this encounter Visit Diagnoses Diagnosis Encounter for laboratory testing for COVID-19 virus documented in this encounter Care Teams Assurance Associate Relationship Specialty Start Date End Date Bryanna Herrmann MD 1 DO NOT USE THIS RECORD PCP - General Obstetrics and Gynecology 09/01/19 12/28/22 Unknown Unknow Provider Address PCP - General 12/29/22 Provider, Unknown 1 DO NOT USE THIS RECORD 02/01/19 Greta Gray LPCA 1 DO NOT USE THIS RECORD Clinician Social Work 10/05/19 11/29/20 Carrie Hunt APRN [address] [place] [address] Primary BH Attending Psychiatry, General 10/28/19 documented as of this encounter
--- OUTSIDE RECORDS SUMMARY | 2024-11-21 17:31 | XMS_ITS | Encounter Summary ---
Author Organization [facility] Address [address] [place] [address] Care Team Providers Care Homebirth Midwife Name Role Phone Provider, Unknown Unavailable [phone] Bryanna Herrmann MD Primary Care Provider + [phone] Greta Gray LPCA Unavailable [phone] Carrie Hunt BRIDAL GOWN FITTER Unavailable [phone] Unknown Primary Care Provider [phone] Encounter Details Date Type Department Care Team (Late st Contact Info) Description 10/16/2020 Lab Requisition [facility] [address] Through [address] [place] [phone] Mike Frank MD [address] [place], [place] [id number] Encounter for laboratory testing for COVID-19 virus [...] Comments COVID-19 (SARS-COV-2) - [facility] Routine 10/16/2020 12:43 PM EDT Encounter for laboratory testing for COVID-19 virus [ICD-10-CM] documented in this encounter Results * COVID-19 (SARS-COV-2) (SEMA4) (10/16/2020 12:43 PM EDT) COVID-19 RT-PCR NOT-DETEC TAMARA Not-Detec tamara 10/17/2020 2:52 PM EDT YEE RACHEL - DEVI Comment:Interpretation: The viral RNA was not detected, making the COVID-19 diagnosis less likely. Clinical correlation is highly recommended.Final report signed by Murphy Corona, Ph.D., Laboratory DirectorTests performed at [facility] Nasopharyngeal swab / Unknown 10/16/2020 12:43 PM EDT 10/16/2020 12:43 PM EDT Narrative YEE RACHEL - SKYLERAKER - 10/17/2020 2:52 PM EDT Performed by [facility] [address] [place] [address], CLIA# [id number] and [place] License# [id number] us Mike Frank MD MICROBIOLOGY - GENERAL ORDER TELMA Final Result YEE QUINONEZ documented in this encounter Visit Diagnoses Diagnosis Encounter for laboratory testing for COVID-19 virus documented in this encounter Care Teams Homebirth Midwife Relationship Specialty Start Date End Date Bryanna Herrmann MD 1 DO NOT USE THIS RECORD PCP - General Obstetrics and Gynecology 09/01/19 12/28/22 Unknown Unknow Provider Address PCP - General 12/29/22 Provider, Unknown 1 DO NOT USE THIS RECORD 02/01/19 Greta Gray LPCA 1 DO NOT USE THIS RECORD Clinician Social Work 10/05/19 11/29/20 Carrie Hunt APRN [address] [place] [address] Primary BH Attending Psychiatry, General 10/28/19 documented as of this encounter
--- OUTSIDE RECORDS SUMMARY | 2024-11-21 17:31 | XMS_ITS | Patient Health Record ---
Author Organization [facility] Address [address] [place] [address] Care Team Providers Care Licensing Services Clerk Name Role Phone Jabier Tucker Primary Care [...] Vaccine Route Administration Date Status Comme nts Tdap IM Intramuscular 01/07/2018 Administered Influenza, seasonal, injectable, preservative free, 3 yrs and above IM Intramuscular 06/25/2016 Administered Influenza (split), 3 yrs and above Unknown 05/20/2018 Pending Influenza (split), 3 yrs and above IM Intramuscular 05/20/2018 Administered Social History Tobacco Use: Social History [...] Problem Status W/U Status Risk Notes Problem 03203022 Essential (primary) hypertension (I10) Active confirmed Problem 282829416 Anxiety disorder, unspecified type (F41.9) Active confirmed Problem 31306845 Amenorrhea (N91.2) Active confirmed Problem Obesity (459142378) Obesity (E66.9) Active confirmed Problem 83173286 Folliculitis (L73.9) Active confirmed Problem Menstrual disorder (669515603) Irregular menses (N92.6) Active confirmed Problem 96823581 Absent menses (N91.2) Active confirmed Problem 443950764 Mass of left side of neck (R22.1) Active confirmed present x 11 years Problem 849361238 LFT elevation (R94.5) Active confirmed liver echogenic on US c/w fatty liver 02/10 Problem 054686220 NAFLD (nonalcoholic fatty liver disease) (K76.0) Active confirmed AST previously 50, now 52. denies alcohol use Problem 259594136 Dyshidrotic eczema (L30.1) Active confirmed Problem 965592537 Encounter for tobacco use cessation counseling (Z71.6) Active confirmed Plan Of Treatment Pending Test Test Name Order Date Urinalysis 03/03/2016 Urinalysis 06/25/2016 RESPIRATORY ALLERGY PROFILE REGION I THINPREP TIS PAP REFLEX HPV mRNA E6/E7, CT/NG, TRICH 02/26/2017 HEPATIC FUNCTION PANEL 05/20/2018 CHLAMYDIA/N. GONORRHOEAE RNA, TMA 2015 CULTURE, URINE, ROUTINE 06/25/2016 HCG 04/11/2016 HCG 05/27/2016 Insurance Providers Payer Name Payer Address Payer Phone Subscriber Number Group Number Insured Name Patient Relationship to Insured Coverage Start Date Coverage End Date [employer] Vides [address] [place] [phone] [id number] Vivian Sy Self - patient is the insured [employer] [address] [place] [address] [phone] [id number] Vivian Sy Self - patient is the [...]
--- OUTSIDE RECORDS SUMMARY | 2024-11-21 17:31 | XMS_ITS | Clinical Summary ---
Author Organization [facility] Address [address] [place] [address] Care Team Providers Care Industry Consultant Name Role Phone Unavailable Primary Care Provider [...] Influencers of Health Screening 02/24/2024 COVID-19 Vaccine (2023-2 5 season) 2024 Influenza Vaccine (Season Ended) 2025 HIB Vaccines Aged Out No longer eligi [...] age to complete this topic Meningococcal B Vaccine Aged Out No l onger eligible based on patient's age to complete [...]
== END 2024-11-21 16:01 | disposition home or self-care (01) ==
LOC: HO.HMCFM 14:39
PROVIDERS: PCP Nurse Practitioner Family; Visit Provider Physician Assistant Medical
DX: K76.0 Fatty (change of) liver, not elsewhere classified (principal); I10 Essential (primary) hypertension; L30.9 Dermatitis, unspecified

== ENCOUNTER → 2024-11-21 14:38 | Outpatient (BNVA) | payer OTHER, SELFPAY | PROVIDERS: PCP Nurse Practitioner Family; Visit Provider Physician Assistant Medical | DX: K76.0 Fatty (change of) liver, not elsewhere classified (principal); I10 Essential (primary) hypertension; L30.9 Dermatitis, unspecified | CPT/HCPCS: 96127; 99212 ==

== ENCOUNTER 2025-01-05 10:50 | Outpatient (REF) | payer OTHER, SELFPAY ==
--- NOTE | ~2025-01-05 | US_ITS ---
EXAMINATION: US ABDOMEN LIMITED WITH LIVER ELASTOGRAPHY HISTORY: K76.0 - Fatty (change of) liver, not elsewhere classified TECHNIQUE: Real-time grayscale ultrasound imaging of the right upper quadrant was performed and images were reviewed. COMPARISON: There are no prior studies available for comparison. FINDINGS: Liver: The right lobe of the liver measures 13.3 cm in size. The left lobe of the liver measures 8.0 cm in size. The liver demonstrates normal homogeneous echotexture. No focal mass or intrahepatic biliary ductal dilatation is identified. There is normal hepatopedal flow in the portal vein. Ultrasound elastography of the liver was performed with 10 separate measurements of the liver parenchyma with the patient in the supine position. Measurements were obtained approximately 2 cm below Karolina's capsule and perpendicular to the capsule. The median shear wave velocity is 1.21 m/s. The interquartile range/median (IQR/median) is 0.10. Gallbladder and biliary tree: The gallbladder is unremarkable, without evidence of calculi, wall thickening, or pericholecystic fluid. There is no sonographic Rey sign. The common bile duct is normal in caliber measuring 2 mm. Right Kidney: The right kidney measures 11.0 cm in length. The right kidney is unremarkable, without evidence of masses, hydronephrosis, or calculi. Pancreas: The pancreatic head, neck, and body are unremarkable. The pancreatic tail is obscured by bowel gas. Abdominal aorta and inferior vena cava: The visualized portions of the abdominal aorta and inferior vena cava are normal in caliber. There is no free fluid in the right upper quadrant. US/US abdomen kirkpatrick w elastography IMPRESSION: Unremarkable right upper quadrant ultrasound. The median shear wave velocity in the liver is 1.21 m/s, corresponding to a median liver stiffness of 4.39 kPa. The IQR/median value is 0.10. This is indicative of a quality data set. Findings are indicative of a normal elastography value with a low likelihood of severe fibrosis or cirrhosis. REFERENCE: Society of Radiologists in Ultrasound Liver Stiffness Thresholds (2020): LIVER STIFFNESS THRESHOLDS: *Shear wave velocity less than 1.3 m/s (Liver Stiffness equal or less than 5 kPa): High probability of being normal. *Shear wave velocity less than 1.7 m/s (Liver Stiffness less than 9 kPa): In the absence of other known clinical signs, rules out compensated advanced chronic liver disease. *Shear wave velocity between 1.7-2.1 m/s (Liver Stiffness 9-13 kPa): Suggestive of compensated advanced chronic liver disease but need further test for confirmation. *Shear wave velocity between 2.1-2.4 m/s (Liver Stiffness 13-17 kPa): Rules in compensated advanced chronic liver disease. *Shear wave velocity greater than 2.4 m/s (Liver Stiffness over 17 kPa): Suggestive of clinically significant portal hypertension. QUALITY OF DATA SET: *IQR/Median value equal or less than 0.15 implies a quality data set. *IQR/Median value over 0.15 implies a poor quality data set. SIGNIFICANT CHANGE FROM PRIOR EXAM: Significant change if liver stiffness measurement is 10% or greater from prior exam. OTHER CONSIDERATIONS: The stage of liver fibrosis may be overestimated in the setting of acute hepatitis, liver inflammation, elevated liver function tests, hepatic vascular congestion, obstructive cholestasis, non-fasting state, and infiltrative diseases such as amyloidosis and lymphoma. In some patients with NAFLD, the liver stiffness thresholds for compensated advanced chronic liver disease may be lower. In causes other than viral hepatitis and NAFLD, liver stiffness thresholds are not well established. Electronically signed by: Modesto Farr MD 01/05/2025 11:36 AM EDT
--- OUTSIDE RECORDS SUMMARY | 2025-01-05 12:44 | XMS_ITS | Encounter Summary ---
Author Organization [facility] Address [address] [place] [address] Care Team Providers Care Hotel Or Motel Manager Name Role Phone Viridiana Calvillo CNM Primary Care Provider [phone] Provider, Unknown Unavailable [phone] Bryanna Herrmann MD Primary Care Provider [phone] Greta Gray LPCA Unavailable [phone] Carrie Hunt RETENTION REPRESENTATIVE Unavailable [phone] Unknown Primary Care Provider [phone] Encounter Details Date Type Department Care Team (Late st Contact Info) Description 05/20/2019 Prep for Surgery OBGYN IP [address] [place] [address] Bryanna Herrmann MD [address] [place] [phone] History of delivery (Primary Dx) Social History [...] Primary documented in this encounter Care Teams Hotel Or Motel Manager Relationship Specialty Start Date End Date Viridiana Calvillo CNM [address] [place] [address] [address] [place] [address] PCP - General Obstetrics and Gynecology 02/01/19 08/31/19 Bryanna Herrmann MD 1 DO NOT USE THIS RECORD PCP - General Obstetrics and Gynecology 09/01/19 12/28/22 Unknown Unknow Provider Address PCP - General 12/29/22 Provider, Unknown 1 DO NOT USE THIS RECORD 02/01/19 Greta Gray LPCA 1 DO NOT USE THIS RECORD Clinician Social Work 10/05/19 11/29/20 Carrie Hunt APRN [address] [place] [address] Primary BH Attending Psychiatry, General 10/28/19 documented as of this encounter
== END 2025-01-05 10:51 | disposition home or self-care (01) ==
LOC: HO.US 10:50
PROVIDERS: PCP Physician Assistant Medical; Visit Provider Physician Assistant Medical
DX: K76.0 Fatty (change of) liver, not elsewhere classified (principal); Z98.890 Other specified postprocedural states; Z87.19 Personal history of other diseases of the digestive system
CPT/HCPCS: 76705; 76981

== ENCOUNTER → 2025-01-05 10:52 | Outpatient (BNV) | payer OTHER, SELFPAY | PROVIDERS: PCP Physician Assistant Medical; Visit Provider Radiology Diagnostic Radiology | DX: K76.0 Fatty (change of) liver, not elsewhere classified (principal) | CPT/HCPCS: 76705; 76981 ==

== ENCOUNTER 2025-04-13 11:40 | Outpatient (AMB) | payer OTHER, SELFPAY ==
--- NOTE | 2025-04-13 12:12 | MHC.PC.OV ---
Vital Signs 04/13/25 12:16 Height 5 ft 6 in Weight 175 lb 4 oz BMI 28.3 BP 110/80 Blood Pressure Location Rt brachial Position Sitting Respiration 16 Pulse 51 Pulse Source Pulse Oximeter Temp 97.1 F Pulse Oximetry (%) 100 Oxygen Delivery Method Room Air Intake Visit Reasons: HTN, chest discomfort Intake Note: Vivian presents in the office today for hypertension and chest discomfort. Allergies No Known Allergies Allergy (Verified 04/13/25 12:15) Tobacco use date assessed: 04/13/25 Dental Screening Dental Screen Date: 04/13/25 Did you have a dental visit in the last 12 months?: No Did you have a dental problem in the last 6 months where you did not have access to dental care?: No Was dental information given to patient?: Patient declined HPI HPI Comments History of Present Illness Details This is a 35-year-old female with a past medical history of anxiety with depression, hypertension, iron-deficiency anemia presenting for ER follow up. Patient has had a very stressful last week or so. Both of her grandmothers and she traveled to [place]. The funerals were held the same day. She returned home. She was not feeling well. She had a funny feeling in her chest and had intermittent dizziness and a headache. Her blood pressure at home was elevated. She restarted nifedipine 30 mg daily. She went to the emergency department on 04/10/2025 but left against medical advice without seeing the provider. Labs demonstrated hypokalemia with a potassium level of 3.0. Renal function was normal. Troponin negative. CBC demonstrated mild anemia with hemoglobin 11.1 and hematocrit 35.4. White blood cell count and platelet count were normal. She had an EKG which demonstrated R-wave in aVL (normal versus minimal criteria for LVH). She had stopped nifedipine because she was exercising and eating well, and her blood pressure has been normal. She is a single mom to 3 children. She admits to stress, and she would like to see a therapist. She is not interested in medication right now. She is grieving the loss of her grandparents. She requests referral to vascular surgery for varicose veins on her lower legs. The appearance bothers her, but she is asymptomatic. ROS: Constitutional: No fevers, chills or unexplained weight loss. Admits to fatigue. Eyes: No vision changes, blurry vision, double vision Respiratory: No shortness of breath, cough or sputum production. Cardiovascular: No chest pain, palpitations or pedal edema Gastrointestinal: No anorexia, nausea, vomiting or diarrhea. No abdominal pain or blood in stool. Neurologic: No headache, dizziness, syncope, unilateral weakness, ataxia, numbness or tingling in the extremities. Hematologic/Lymphatics: No bleeding or bruising Endocrine: No cold or heat intolerance. No polyuria or polydipsia. Psychiatric: No depression or SI/HI. +anxiety Physical exam: Constitutional: Alert, in no distress. Eyes: Pupils are equal, round and reactive to light. Extraocular muscles intact. Neck: Supple, Full range of motion. No lymphadenopathy. No palpable thyroid masses. Respiratory: Clear to auscultation. Cardiovascular: S1 S2 regular. No murmurs.. Gastrointestinal: Abdomen soft, non-tender, non-distended. Normal bowel sounds. No palpable masses. Neurologic: No focal neurological deficits. Extremities: Warm and well perfused. No clubbing, cyanosis or edema. Intact peripheral pulses bilaterally. Psychiatric: Normal mood and affect [facility] Medical History (Updated 04/13/25 @ 17:42 by WILFRID Monroe) Varicose veins of both lower extremities Abnormal EKG Anxiety and depression Low blood potassium Eczema Essential hypertension Hepatic steatosis delivery delivered High blood pressure Surgical History (Updated 11/21/24 @ 15:51 by WILFRID Monroe) History of umbilical hernia repair History of endometrial ablation Family History Father Asthma High blood pressure Cardiovascular disease Mother High blood pressure Diabetes Maternal Grandmother Diabetes Brother Asthma Sister Asthma Social History (Updated 04/13/25 @ 12:16 by Moriah Lucas CMA) Housing: Apartment Alcohol intake: never Patient Tobacco Use Status: Never used Tobacco e-Cigarette/Vaping Use: Currently Using Second Hand Smoke Exposure: No service: No Current occupational status: employed Current occupation: [employer] Cognitive needs: No Hearing needs: No Vision needs: No Questionnaire Thrive Questionnaire Date Thrive assessed: 09/29/24 I am a: Patient What is your living situation today?: I have a steady place to live Within the past 12 months, did the food you bought not last and you didn't have the money to get more?: I choose not to answer this question Within the past 12 months, did you worry whether your food would run out before you got money to buy more?: I choose not to answer this question Do you have trouble paying for medicines?: I choose not to answer this question Do you have trouble getting transportation to medical appointments?: I choose not to answer this question Do you have trouble paying your heating and electricity bill?: I choose not to answer this question Do you have trouble taking care of your child, family member or friend?: I choose not to answer this question Do you have trouble with day-to-day activities such as bathing, preparing meals, shopping, managing finances, etc.?: I choose not to answer this question Are you currently unemployed and looking for a job?: I choose not to answer this question Are you interested in more education?: I choose not to answer this question Please select the resources that you would like help with: None Currently or been in a relationship where the following occur: I choose not to answer THRIVE Score: 0 KELSEA-7 AMB Questionnaire KELSEA-7 Date KELSEA - 7 assessed: 11/21/24 Source: Developed by Drs. Modesto Navarrete, Delisa Suggs, Raúl Mai and colleagues, with an educational juanita from [employer]. Physical exam (Primary Care) Vital Signs: Last Vital Signs Temp 97.1 F 04/13/25 12:16 Pulse 51 04/13/25 12:16 Resp 16 04/13/25 12:16 BP 110/80 04/13/25 12:16 Pulse Ox 100 04/13/25 12:16 Oxygen Delivery Method Room Air 04/13/25 12:16 BMI result Body Mass Index 28.3 Tobacco/Smoking Status: Tobacco use Status Tobacco use date assessed 04/13/25 04/13/25 12:21 Patient Tobacco Use Status Never used Tobacco 04/13/25 12:16 e-Cigarette/Vaping Use Currently Using 04/13/25 12:16 Thrive Assessment: Date of Thrive Assessment Date Thrive assessed 09/29/24 04/13/25 12:14 Currently or been in a relationship where the following occur: I choose not to answer Coding Level of Care Code Est Pt Level 4 (58654) Complex EM visit Add On G2211 Diagnoses Anxiety and depression F41.9; F32.A Essential hypertension I10 Abnormal EKG R94.31 Asymptomatic varicose veins of both lower extremities I83.93 Varicose vein complication: asymptomatic Other iron deficiency anemia D50.8 Iron deficiency anemia type: other iron deficiency Assessment & Plan Assessment & Plan (1) Anxiety and depression: Code(s): F41.9 - Anxiety disorder, unspecified; F32.A - Depression, unspecified Category: Medical (2) Essential hypertension: Code(s): I10 - Essential (primary) hypertension Category: Medical (3) Abnormal EKG: Code(s): R94.31 - Abnormal electrocardiogram [ECG] [EKG] Category: Medical (4) Varicose veins of both lower extremities: Code(s): I83.93 - Asymptomatic varicose veins of bilateral lower extremities Category: Medical Qualifiers: Varicose vein complication: asymptomatic Qualified Code(s): I83.93 - Asymptomatic varicose veins of bilateral lower extremities (5) Iron deficiency anemia: Code(s): D50.9 - Iron deficiency anemia, unspecified Category: Medical Qualifiers: Iron deficiency anemia type: other iron deficiency Qualified Code(s): D50.8 - Other iron deficiency anemias Plan The patient will have lab work done today. Echocardiogram ordered for evaluation of borderline abnormal EKG LVH versus normal variant. It is medically necessary as she does have a history of hypertension and presented with chest discomfort and dizziness. Continue nifedipine for hypertension. Referred to Psychology for therapy. Refer to vascular surgery. Follow up in 8 weeks. Return to ED for recurrent chest pain, dizziness, palpitations, shortness of breath, severe headache or vision changes. Orders: Orders Complete Blood Count Auto Diff Today E87.6 - Hypokalemia, I10 - Essential (primary) hypertension IRON PROFILE Today D64.9 - Anemia, unspecified, E87.6 - Hypokalemia, I10 - Essential (primary) hypertension Vitamin B12 and Folate Today D64.9 - Anemia, unspecified, E87.6 - Hypokalemia, I10 - Essential (primary) hypertension Magnesium Today E87.6 - Hypokalemia, I10 - Essential (primary) hypertension Comprehensive Met. Panel Today E87.6 - Hypokalemia, I10 - Essential (primary) hypertension Ferritin Today D64.9 - Anemia, unspecified, E87.6 - Hypokalemia, I10 - Essential (primary) hypertension TSH reflex Free T4 Today E87.6 - Hypokalemia, I10 - Essential (primary) hypertension CA echo transthoracic complete Today I10 - Essential (primary) hypertension, R94.31 - Abnormal electrocardiogram [ECG] [EKG] Referrals Psychology Referral F32.A - Depression, unspecified, F41.9 - Anxiety disorder, unspecified Vascular Surgery Referral I83.93 - Asymptomatic varicose veins of bilateral lower extremities
[2025-04-13 12:16] VITALS: BP 110/80; PULSE 51; RESP 16; TEMP 36.2; O2SAT 100; BMI 28.3
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
--- OUTSIDE RECORDS SUMMARY | 2025-04-13 14:03 | XMS_ITS | Clinical Summary ---
Author Organization [facility] Address [address] [place] [address] Care Team Providers Care Hospital Unit Clerk Name Role Phone Unavailable Primary Care Provider [...] Screening (Pap Smear) 2010 COVID-19 Vaccine (4 - 2024-2 6 season) 2025 06/27/2021, 12/06/2020, 11/15/2020 Influenza Vaccine (#1) 2025 0, 05/20/2018 DTap / Tdap / Td (3 - Td or Tdap) 07/06/2029 07/06/2019, 01/07/2018 Pneumococcal Vaccine Aged Out No long er eligible based on patient's age to complete this topic RSV Ped < 20 months Aged Out No longe r eligible based on patient's age to complete this topic
--- OUTSIDE RECORDS SUMMARY | 2025-04-13 14:03 | XMS_ITS | Clinical Summary ---
Author Organization [facility] Address [address] [place] [address] Care Team Providers Care Lighting Engineering Technician Name Role Phone Unavailable Primary Care Provider Unavailabl e Allergies No known active allergies Medications VITAFOL-ONE [...] Additional Information Patient not taking.Reported on 10/30/2023 Active Problems Problem Noted Date Diagnosed Date [...] Immunization Administration Dates Next Due COVID-19 mRNA ([employer]) 06/27/2021,12/06/2020, Influenza (IM) Preservative Free 06/25/2016 Influenza [...] 60 10/30/2023 1:58 PM EDT Temperature 36.8 C (98.2 F) 10/30/2023 1:58 PM EDT Respiratory Rate 16 04/26/2020 1:23 PM EDT [...] of 3 - 19+ 3-dose series) 01/30/2008 HPV Vaccines (1 - 3-dose SCD M series) 01/30/2016 HPV/Cotest 2019 COVID-19 Vaccine (4 - 2024-2 6 season) 2025 06/27/2021, 12/06/2020, 11/15/2020 Influenza Vaccine (#1) 2025 , 05/20/2018, 06/25/2016 Cervical Cancer Screening 12/15/2025 Pap Smear 12/15/2025 12/15/2022 DTaP,Tdap,and Td Vaccines (3 - Td or Tdap) 07/06/2029 07/06/2019, 01/07/2018 Zoster Vaccines (1 of 2) 2039 Hepatitis A Vaccines Aged Out No long [...]
--- OUTSIDE RECORDS SUMMARY | 2025-04-13 14:03 | XMS_ITS | Encounter Summary ---
Author Organization [facility] Address [address] [place] [address] Care Team Providers Care Matzo Forming Machine Operator Name Role Phone Viridiana Calvillo CNM Primary Care Provider [phone] Provider, Unknown Unavailable [phone] Bryanna Herrmann MD Primary Care Provider [phone] Greta Gray LPCA Unavailable [phone] Carrie Hunt RATTAN WORKER Unavailable [phone] Unknown Primary Care Provider [phone] Encounter Details Date Type Department Care Team (Late st Contact Info) Description 05/20/2019 Prep for Surgery OBGYN IP [address] [place] [address] Bryanna Herrmann MD [address] [place] [id number] History of delivery (Primary Dx) Social History [...] Primary documented in this encounter Care Teams Matzo Forming Machine Operator Relationship Specialty Start Date End Date Viridiana Calvillo CNM [address] [place] [address] [address] [place] [address] PCP - General Obstetrics and Gynecology 02/01/19 08/31/19 Bryanna Herrmann MD 1 DO NOT USE THIS RECORD PCP - General Obstetrics and Gynecology 09/01/19 12/28/22 Unknown Unknow Provider Address PCP - General 12/29/22 Provider, Unknown 1 DO NOT USE THIS RECORD 02/01/19 Greta Gray LPCA 1 DO NOT USE THIS RECORD Clinician Social Work 10/05/19 11/29/20 Carrie Hunt APRN [address] [place] [address] Primary BH Attending Psychiatry, General 10/28/19 documented as of this encounter
--- OUTSIDE RECORDS SUMMARY | 2025-04-13 14:03 | XMS_ITS | Clinical Summary ---
Author Organization [facility] Address [address] [place] [address] Care Team Providers Care Supervisor Cellars Name Role Phone Provider, Unknown Unavailable [phone] Unknown Primary Care Provider [phone] [...] (05/20/2019): Added automatically from request for surgery [id number] Resolved Problems Problem Noted Date Diagnosed Date [...] 66 08/26/2023 4:35 PM EST Temperature 36.5 C (97.7 F) 08/26/2023 4:35 PM EST Respiratory Rate 16 05/21/2023 3:45 PM EDT [...] - 19+ 3-dose series) 01/30/2008 Pneumococcal Vaccine: Pediat yeyo (0-5 Years) and At-Risk Patients (6 to 49 Years) (1 of 2 - PCV) 01/30/2008 HPV Vaccines (1 - 3-dose SCDM series) 01/30/2016 Influenza Vaccine 02/24/2025 06/01/2020 COVID-19 Vaccine (2024- season) 2025 06/27/2021, 12/06/2020, 11/15/2020 Pap Smear (Ages 21-65) 12/15/2025 12/15/2022 Procedures Procedure Name Priority Date/Time Associated Diagnosis Comments THINPREP PAP TEST (FORESTER AIDE) WITH HPV REFLEX, GC/CT Routine 12/15/2022 3:19 PM EDT Encounter for annual physical examination excluding gynecological examination in a patient older than 17 years from Last 3 Months or Most Recently Relevant to Health Maintenance Results * ThinPrep Pap Test with HPV Reflex on ASCUS, GC/CT (12/15/2022 3:19 PM EDT) 12/15/2022 3:19 PM EDT Narrative [facility] - 12/18/2022 2:48 PM EDT To view the final report click the scan hyperlink below. us Ray Lincoln MD LAB AMB PATH/CYTO ORDERABLES Final Result [facility] [address] [place] [address], from Last 3 Months or Most Recently Relevant to Health Maintenance Insurance [id number] [place] [address] [facility] [phone] [place] [address] Advance Directives * Full Code (Latest Code [...] 8:07 AM 09/01/2019 2:10 AM Care Teams Supervisor Cellars Relationship Specialty Start Date End Date Unknown Unknow Provider Address PCP - General 12/29/22 Provider, Unknown 1 DO NOT USE THIS RECORD 02/01/19
--- OUTSIDE RECORDS SUMMARY | 2025-04-13 14:04 | XMS_ITS | Clinical Summary ---
Author Organization [facility] ity Address [address] [place] [address] Care Team Providers Care Cloth Tester Quality Name Role Phone Unavailable Primary Care Provider [...] Cervical Cancer Screening: P ap Smear 2010 HIV Screening 02/24/2024 Hepatitis C Screening 02/24/2024 Social Influencers of Health Screening 02/24/2024 Depression Screening 07/27/2024 COVID-19 Vaccine (2023-2 5 season) 2025 Influenza Vaccine (#1) 2025 HIB Vaccines Aged Out No longer [...]
--- OUTSIDE RECORDS SUMMARY | 2025-04-13 14:04 | XMS_ITS | Encounter Summary ---
Author Organization [facility] Address [address] [place] [address] Care Team Providers Care Food Service Representative Name Role Phone Provider, Unknown Unavailable [phone] Bryanna Herrmann MD Primary Care Provider [phone] Greta Gray LPCA Unavailable [phone] Carrie Hunt RECEIVING TANK OPERATOR Unavailable [phone] Unknown Primary Care Provider [phone] Encounter Details Date Type Department Care Team (Late st Contact Info) Description 10/16/[address] [facility] [address] [place] [phone] Mike Frank MD [address] [place], [place] [id number] Encounter for laboratory testing for COVID-19 virus [...] Murphy Corona, Ph.D., Laboratory DirectorTests performed at [facility] Microbiology Nasopharyngeal swab / Unknown 10/16/2020 12:43 PM EDT 10/16/2020 12:43 PM EDT Narrative YEE RACHEL - SKYLERAKER - 10/17/2020 2:52 PM EDT Performed by [facility] [address] [place] [address], CLIA# [id number] and [place] License# [id number] us Mike Frank MD MICROBIOLOGY - GENERAL ORDER TELMA Final Result YEE QUINONEZ documented in this encounter Visit Diagnoses Diagnosis Encounter for laboratory testing for COVID-19 virus documented in this encounter Care Teams Food Service Representative Relationship Specialty Start Date End Date Bryanna Herrmann MD 1 DO NOT USE THIS RECORD PCP - General Obstetrics and Gynecology 09/01/19 12/28/22 Unknown Unknow Provider Address PCP - General 12/29/22 Provider, Unknown 1 DO NOT USE THIS RECORD 02/01/19 Greta Gray LPCA 1 DO NOT USE THIS RECORD Clinician Social Work 10/05/19 11/29/20 Carrie Hunt APRN [address] [place] [address] Primary BH Attending Psychiatry, General 10/28/19 documented as of this encounter
--- OUTSIDE RECORDS SUMMARY | 2025-04-13 14:04 | XMS_ITS | Encounter Summary ---
Author Organization [facility] Address [address] [place] [address] Care Team Providers Care Charger Operator Helper Name Role Phone Provider, Unknown Unavailable [phone] Bryanna Herrmann MD Primary Care Provider + [phone] Greta Gray LPCA Unavailable [phone] Carrie Hunt FRONT DESK TEAM MEMBER Unavailable [phone] Unknown Primary Care Provider [phone] Encounter Details Date Type Department Care Team (Late st Contact Info) Description 07/31/[address] [facility] [address] [place] [phone] Reinaldo Bae PA-C [address] [place] [address] Encounter for laboratory testing for COVID-19 virus [...] Date/Time Associated Diagnosis Comments COVID-19 (SARS-COV-2) - [facility] Routine 07/31/2020 11:45 AM EST Encounter for laboratory testing for COVID-19 virus [ICD-10-CM] documented in this encounter Results * COVID-19 (SARS-COV-2) ([facility]) (07/31/2020 11:45 AM EST) COVID-19 RT-PCR NOT-DETEC TAMARA Not-Detec tamara 08/01/2020 6:12 PM EST [facility] [place] Comment:Interpretation: The viral RNA was not detected, making the COVID-19 diagnosis less likely. Clinical correlation is highly recommended.Final report signed by Murphy Corona, Ph.D., Laboratory DirectorTests performed at [facility] Microbiology Nasopharyngeal swab / Unknown 07/31/2020 11:45 AM EST 07/31/2020 11:45 AM EST Narrative [facility] - [place] - 08/01/2020 6:12 PM EST Performed by [facility] [address] [place] [address], CLIA# [id number] and [place] License# [id number] Reinaldo Bae PA-C MICROBIOLOGY - GENERAL OR DERABLES Final Result YEE QUINONEZ documented in this encounter Visit Diagnoses Diagnosis Encounter for laboratory testing for COVID-19 virus documented in this encounter Care Teams Charger Operator Helper Relationship Specialty Start Date End Date Bryanna Herrmann MD 1 DO NOT USE THIS RECORD PCP - General Obstetrics and Gynecology 09/01/19 12/28/22 Unknown Unknow Provider Address PCP - General 12/29/22 Provider, Unknown 1 DO NOT USE THIS RECORD 02/01/19 Greta Gray LPCA 1 DO NOT USE THIS RECORD Clinician Social Work 10/05/19 11/29/20 Carrie Hunt APRN [address] [place] [address] Primary BH Attending Psychiatry, General 10/28/19 documented as of this encounter
== END 2025-04-13 12:56 | disposition home or self-care (01) ==
LOC: HO.HMCFM 11:41
PROVIDERS: PCP Physician Assistant Medical; Visit Provider Physician Assistant Medical
DX: F41.9 Anxiety disorder, unspecified (principal); F32.A Depression, unspecified; I10 Essential (primary) hypertension; R94.31 Abnormal electrocardiogram [ECG] [EKG]; I83.93 Asymptomatic varicose veins of bilateral lower extremities; D50.8 Other iron deficiency anemias

== ENCOUNTER 2025-04-13 11:40 | Outpatient (REF) | payer OTHER, SELFPAY ==
[2025-04-13 14:42] LABS: MANUAL DIFF FLAG NO
[2025-04-13 14:45] LABS: Hematocrit 35.7 % (37.0-47.0); Hemoglobin 11.3 g/dl (12.0-16.0); Imm Gran Abs Auto 0.02 X10*3/uL (0.00-0.03); Imm Gran Pct Auto 0.3 % (0.0-0.4); Lymphocytes Absolute Auto 1.6 X10*3/uL (1.2-4.9); Mean Corpuscular HGB Conc 31.7 g/dl (31.0-35.0); Mean Corpuscular Hemoglobin 25.9 pg (27.0-33.0); Mean Corpuscular Volume 81.7 fL (80.0-98.0); NRBC Abs Auto 0.000 X10*3/uL (0.0-0.012); NRBC Pct Auto 0.0 /100WBC (0.0-0.2); Platelet Count 274 X10*3/uL (160-400); Red Blood Count 4.37 X10*6/uL (4.20-5.50); White Blood Count 7.0 X10*3/uL (4.8-10.8)
[2025-04-13 15:30] LABS: Alanine Aminotransferase 16 U/L (0-31); Albumin Level 4.4 g/dL (3.5-5.0); Alkaline Phosphatase 72 U/L (39-117); Anion Gap 8 (12-20); Aspartate Amino Transferase 96 U/L (5-31); Blood Urea Nitrogen 12 mg/dL (9-16); Calcium 9.0 mg/dL (8.4-10.2); Carbon Dioxide 28 mmol/L (22-29); Chloride 106 mmol/L (96-108); Estimated Glomerular Filt Rate > 60; Iron 39 mcg/dL (30-160); Magnesium 2.2 mg/dL (1.6-2.6); Percent Iron Saturation 10 % (15-50); Potassium 3.4 mmol/L (3.3-5.1); Sodium 139 mmol/L (135-145); Total Iron Binding Capacity 376 mcg/dL (228-428); Total Protein 7.4 g/dL (6.5-8.0); Unsaturated Iron Binding 337 ug/dL
[2025-04-13 15:49] LABS: Ferritin 8 ng/mL (10-122)
[2025-04-13 18:53] LABS: Folate 9.6 ng/mL (> or = 4.0); Vitamin B12 434 pg/mL (200-900)
[2025-04-14 08:56] LABS: HBS Num1 0.75 mIU/mL (0-7.99); HBc Num1 0.07 S/CO (0.00-0.79); HBsAGNum1 0.60 S/CO (0.00-0.99); Hepatitis A Antibody IgM 0.19 Index (0-0.79); Hepatitis B Surface Antigen Negative (Negative); ~HepC Num1 0.09 S/CO (0.00-0.79); ~Hepatitis A Antibody IgM Nonreactive (Nonreactive); ~Hepatitis B Surface Antibody NONREACTIVE (Nonreactive); ~Hepatitis C Antibody Nonreactive (Nonreactive)
[2025-04-14 09:30] LABS: Hepatitis A Antibody IgM 0.17 Index (0-0.79); ~Hepatitis A Antibody IgM Nonreactive (Nonreactive)
== END 2025-04-13 11:41 | disposition home or self-care (01) ==
LOC: HO.WFDLDS 11:40
PROVIDERS: PCP Physician Assistant Medical; Visit Provider Physician Assistant Medical
DX: R74.01 Elevation of levels of liver transaminase levels (principal); I10 Essential (primary) hypertension; E87.6 Hypokalemia; D64.9 Anemia, unspecified; F41.9 Anxiety disorder, unspecified; F32.A Depression, unspecified; R94.31 Abnormal electrocardiogram [ECG] [EKG]; I83.93 Asymptomatic varicose veins of bilateral lower extremities; D50.8 Other iron deficiency anemias
CPT/HCPCS: 36415; 80053; 82248; 82607; 82728; 82746; 83540; 83735; 84443; 85025; 86704; 86706; 86709; 86803; 87340; 99212

== ENCOUNTER → 2025-05-23 12:49 | Outpatient (REF) | payer OTHER, SELFPAY ==
--- NOTE | 2025-05-23 13:18 | CA_ITS ---
Transthoracic Echocardiogram Patient (Last, First, Middle): Vivian Sy, Gender: F Date of : 1990 Age: 35 Procedure Date: 05/23/2025 Procedure Type: Transthoracic Echocardiogram Location: OP Height: 167.64 cm Weight: 79.38 kg BSA: 1.89 m2 Heart Rate: bpm BP: 110 / [address] Maintenance Supervisor: BALJEET Referring MD: Janae YUEN Symptoms: R94.31 - Abnormal electrocardiogram [ECG] [EKG] Study Quality: Adequate ECG Rhythm: Sinus Conclusions: - The left ventricular systolic function is normal. The calculated ejection fraction is 62% by biplane method. - No obvious valvular pathology seen on this study. Findings Left Ventricle Normal left ventricular cavity size. There is normal left ventricular wall thickness. The left ventricular systolic function is normal. The calculated ejection fraction is 62% by biplane method. There is no evidence of regional wall motion abnormalities. Diastolic function is normal for age. Right Ventricle Normal right ventricular cavity size and systolic function. Atria The left atrium is mildly dilated. The right atrium is normal in size. Aortic Valve There is a normal trileaflet aortic valve. There is no aortic valve stenosis. There is no aortic valve regurgitation. Mitral Valve The mitral valve appears normal. There is trace mitral valve regurgitation. There is no mitral valve stenosis. Pulmonic Valve The pulmonic valve is likely normal. Tricuspid Valve There is mild tricuspid valve regurgitation. There is no evidence of pulmonary hypertension. Great Vessels The asc aorta and aortic arch are normal in size. Venous The inferior vena cava is normal in size and collapses greater than 50% with inspiration. Pericardium/Pleural There is no evidence of pericardial effusion. Prior Study Comparison No prior study available for comparison. Recommendations, Care & Conclusions No obvious valvular pathology seen on this study. Measurements 2D Linear Measurements IVSd: 0.96 0.6-0.9/0.6-1.0 cm LVIDd: 4.81 3.9-5.3/4.2-5.9 cm LVIDd Index: 2.54 2.4-3.2/2.2-3.1 cm/m2 LVIDs: 2.93 2.0-3.6 cm LVPWd: 0.91 0.7-1.1 cm LA Diam: 3.30 2.7-3.8/3.0-4.0 cm LAIDs Index: 1.75 1.5-2.3 cm/m2 LV Mass: 193.99 67-162/88-224 g LV Mass Index: 102.64 43-95/49-115 g/m2 LVOT Diam: 1.90 3.0+(-)1.3 cm 2D Systolic Function EF 4C: 61.30 >55% EF 2C: 63.50 >55% EF BiP: 62.20 >55% Mitral Valve MV Pk E: 0.76 MV PK A: 0.40 MV Decel Time: 296.00 E/A: 1.90 E'Lateral: 13.90 E'Medial: 9.14 E/E' Med: 8.30 E/E' Lat: 5.50 PHT: 87.00 MVA PHT: 2.53 Decel Comal: 2.56 Aortic Valve AoV Pk Donn: 1.60 AoV Mn Donn: 1.15 AoV VTI: 0.44 AoV Pk Grad: 10.00 Aov Mn Grad: 6.00 BERNIE Cont.VTI: 2.20 LVOT LVOT Pk Donn: 1.45 LVOT Mn Donn: 1.05 LVOT VTI: 0.34 LVOT Pk Grad: 8.00 LVOT Mn Grad: 5.00 LVOT Diam: 1.90 LVOT Area: 2.84 Diastolic Function MV Pk E: 0.76 MV Pk A: 0.40 E/A: 1.90 E'Medial: 9.14 E/E' Med: 8.30 E' Laterial: 13.90 E/E' Lat: 5.50 Right Ventricle TAPSE (mm): 27.30 TVS' Donn: 13.80 Tricuspid Valve TR Pk Donn: 2.46 TR Pk Grad: 24.00 RA Press: 3.00 RVSP: 27.00 Great Vessels Aorta Sinus of Valsalva: 3.05 2.0-3.[address] Ridge: 2.62 1.7-3.4 cm Ao Asc: 3.50 2.1-3.4 cm Ao Arch: 3.00 Pulmonary Veins Pulm Vein S/D 0.90 Updated in Other Vendor System with Status of Final David Le MD electronically signed on 05/24/2025 4:07:58 PM with status of Final
== END ==
LOC: HO.CARD 12:49
PROVIDERS: Visit Provider Physician Assistant Medical
DX: I10 Essential (primary) hypertension (principal); R94.31 Abnormal electrocardiogram [ECG] [EKG]
CPT/HCPCS: 93306

== ENCOUNTER → 2025-05-23 13:18 | Outpatient (BNV) | payer OTHER, SELFPAY | PROVIDERS: Visit Provider Internal Medicine | DX: R94.31 Abnormal electrocardiogram [ECG] [EKG] (principal) | CPT/HCPCS: 93306 ==

== ENCOUNTER 2025-06-08 09:45 | Outpatient (REF) | payer OTHER, SELFPAY ==
[2025-06-08 14:32] LABS: Hematocrit 37.4 % (37.0-47.0); Hemoglobin 11.9 g/dl (12.0-16.0); Mean Corpuscular HGB Conc 31.8 g/dl (31.0-35.0); Mean Corpuscular Hemoglobin 26.8 pg (27.0-33.0); Mean Corpuscular Volume 84.2 fL (80.0-98.0); NRBC Abs Auto 0.000 X10*3/uL (0.0-0.012); NRBC Pct Auto 0.0 /100WBC (0.0-0.2); Platelet Count 260 X10*3/uL (160-400); Red Blood Count 4.44 X10*6/uL (4.20-5.50); White Blood Count 6.9 X10*3/uL (4.8-10.8)
[2025-06-08 15:08] LABS: Iron 42 mcg/dL (30-160); Percent Iron Saturation 12 % (15-50); Total Iron Binding Capacity 337 mcg/dL (228-428); Unsaturated Iron Binding 295 ug/dL
[2025-06-08 15:13] LABS: Ferritin 10 ng/mL (10-122)
== END 2025-06-08 09:46 | disposition home or self-care (01) ==
LOC: HO.WFDLDS 09:45
PROVIDERS: PCP Physician Assistant Medical; Visit Provider Physician Assistant Medical
DX: D50.8 Other iron deficiency anemias (principal); I10 Essential (primary) hypertension; I83.93 Asymptomatic varicose veins of bilateral lower extremities; Z79.899 Other long term (current) drug therapy
CPT/HCPCS: 36415; 82728; 83540; 85027; 99212

== ENCOUNTER 2025-06-08 09:45 | Outpatient (AMB) | payer OTHER, SELFPAY ==
--- NOTE | 2025-06-08 10:07 | A.OFFPC_ITS ---
Vital Signs 06/08/25 10:11 Height 5 ft 6 in Weight 177 lb 6 oz BMI 28.6 BP 102/64 Blood Pressure Location Rt brachial Position Sitting Respiration 16 Pulse 56 Pulse Source Pulse Oximeter Temp 97.8 F Temp Source Temporal Artery Scan Pulse Oximetry (%) 98 Oxygen Delivery Method Room Air Intake Visit Reasons: follow up Intake Note: Bushra presents in the office today to follow up to her labs, as well as, the Echocardiogram. Allergies No Known Allergies Allergy (Verified 06/08/25 10:10) Medication List - Last Reconciled 06/09/25 by WILFRID Monroe ferrous sulfate 324 mg PO DAILY nifedipine ER 30 mg PO DAILY triamcinolone acetonide 0.1% 1 appl topical BID 7 days Tobacco use date assessed: 06/08/25 Dental Screening Dental Screen Date: 06/08/25 Did you have a dental visit in the last 12 months?: Yes Did you have a dental problem in the last 6 months where you did not have access to dental care?: No Was dental information given to patient?: Patient has dentist HPI HPI Comments History of Present Illness Details This is a 35-year-old female with a past medical history of anxiety with depression, hypertension, iron-deficiency anemia presenting for follow up. At her last visit we discussed that she had had a very stressful week. Her gran dmothers had and she traveled to [place]. She did not feel well when she got home, and her blood pressure was elevated. She restarted nifedipine 30 mg daily. She went to the emergency department on 04/10/2025 but left against medical advice without seeing the provider. Labs demonstrated hypokalemia with a potassium level of 3.0. Renal function was normal. Troponin negative. CBC demonstrated mild anemia with hemoglobin 11.1 and hematocrit 35.4. White blood cell count and platelet count were normal. She had an EKG which demonstrated R- wave in aVL (normal versus minimal criteria for LVH). The patient had a normal echocardiogram on 05/23/2025. She denies further episodes of chest pain, shortness of breath or dizziness. Her blood pressure is well-controlled. She is going to repeat lab work. She is taking the iron supplement ?when she remembers it. ? Menses last 7 days with for heavy days. She also notes increasing menstrual cramping over the past 6 months. She has an appointment with Gynecology in June. She saw vascular surgery for varicose veins in her legs. She has a follow up appointment scheduled. ROS: Constitutional: No fevers, chills or unexplained weight loss. Eyes: No vision changes, blurry vision, double vision Respiratory: No shortness of breath, cough or sputum production. Cardiovascular: No chest pain, palpitations or pedal edema Gastrointestinal: No anorexia, nausea, vomiting or diarrhea. No abdominal pain or blood in stool. Neurologic: No headache, dizziness, syncope, unilateral weakness, ataxia, numbness or tingling in the extremities. Hematologic/Lymphatics: No bleeding or bruising Physical exam: Constitutional: Alert, in no distress. Respiratory: Clear to auscultation. Cardiovascular: S1 S2 regular. No murmurs.. Extremities: Warm and well perfused. No clubbing, cyanosis or edema. Intact peripheral pulses bilaterally. Psychiatric: Normal mood and affect [facility] Medical History (Updated 04/13/25 @ 17:42 by WILFRID Monroe) Varicose veins of both lower extremities Abnormal EKG Anxiety and depression Low blood potassium Eczema Essential hypertension Hepatic steatosis delivery delivered High blood pressure Surgical History (Updated 11/21/24 @ 15:51 by WILFRID Monroe) History of umbilical hernia repair History of endometrial ablation Family History Father Asthma High blood pressure Cardiovascular disease Mother High blood pressure Diabetes Maternal Grandmother Diabetes Brother Asthma Sister Asthma Social History (Updated 06/08/25 @ 10:11 by Moriah Lucas CMA) Housing: Apartment Alcohol intake: never Patient Tobacco Use Status: Never used Tobacco e-Cigarette/Vaping Use: Currently Using Second Hand Smoke Exposure: No service: No Current occupational status: employed Current occupation: [employer] Cognitive needs: No Hearing needs: No Vision needs: No Questionnaire Thrive Questionnaire Date Thrive assessed: 09/29/24 I am a: Patient What is your living situation today?: I have a steady place to live Within the past 12 months, did the food you bought not last and you didn't have the money to get more?: I choose not to answer this question Within the past 12 months, did you worry whether your food would run out before you got money to buy more?: I choose not to answer this question Do you have trouble paying for medicines?: I choose not to answer this question Do you have trouble getting transportation to medical appointments?: I choose not to answer this question Do you have trouble paying your heating and electricity bill?: I choose not to a nswer this question Do you have trouble taking care of your child, family member or friend?: I choose not to answer this question Do you have trouble with day-to-day activities such as bathing, preparing meals, shopping, managing finances, etc.?: I choose not to answer this question Are you currently unemployed and looking for a job?: I choose not to answer this question Are you interested in more education?: I choose not to answer this question Please select the resources that you would like help with: None Currently or been in a relationship where the following occur: I choose not to answer THRIVE Score: 0 KELSEA-7 AMB Questionnaire KELSEA-7 Date KELSEA - 7 assessed: 11/21/24 Source: Developed by Drs. Modesto Navarrete, Delisa Suggs, Raúl Mai and colleagues, with an educational juanita from [employer]. Physical exam (Primary Care) Vital Signs: Last Vital Signs Temp 97.8 F 06/08/25 10:11 Pulse 56 06/08/25 10:11 Resp 16 06/08/25 10:11 BP 102/64 06/08/25 10:11 Pulse Ox 98 06/08/25 10:11 Oxygen Delivery Method Room Air 06/08/25 10:11 BMI result Body Mass Index 28.6 Tobacco/Smoking Status: Tobacco use Status Tobacco use date assessed 06/08/25 06/08/25 10:14 Patient Tobacco Use Status Never used Tobacco 06/08/25 10:11 e-Cigarette/Vaping Use Currently Using 06/08/25 10:11 Thrive Assessment: Date of Thrive Assessment Date Thrive assessed 09/29/24 06/08/25 10:09 Currently or been in a relationship where the following occur: I choose not to answer Coding Level of Care Code Est Pt Level 4 (91034) Complex EM visit Add On G2211 Diagnoses Essential hypertension I10 Other iron deficiency anemia D50.8 Iron deficiency anemia type: other iron deficiency Asymptomatic varicose veins of both lower extremities I83.93 Varicose vein complication: asymptomatic Assessment & Plan Assessment & Plan (1) Essential hypertension: Code(s): I10 - Essential (primary) hypertension Category: Medical Plan: Controlled. Continue nifedipine. Lifestyle modifications encouraged. (2) Iron deficiency anemia: Code(s): D50.9 - Iron deficiency anemia, unspecified Category: Medical Qualifiers: Iron deficiency anemia type: other iron deficiency Qualified Code(s): D50.8 - Other iron deficiency anemias Plan: Patient is taking an iron supplement. Check labs. (3) Varicose veins of both lower extremities: Code(s): I83.93 - Asymptomatic varicose veins of bilateral lower extremities Category: Medical Qualifiers: Varicose vein complication: asymptomatic Qualified Code(s): I83.93 - Asymptomatic varicose veins of bilateral lower extremities Plan: She will follow up with vascular surgery as planned. Plan She will schedule a physical in 6 months. Medications: New triamcinolone acetonide 0.1% 1 appl topical BID 30 grams 3RF 7 days nifedipine ER 30 mg PO DAILY 90 tabs 3RF
[2025-06-08 10:11] VITALS: BP 102/64; PULSE 56; RESP 16; TEMP 36.6; O2SAT 98; BMI 28.6
--- OUTSIDE RECORDS SUMMARY | 2025-06-08 11:25 | XMS_ITS | Clinical Summary ---
Author Organization [facility] Address [address] [place] [address] Care Team Providers Care Door Opener Name Role Phone Provider, Unknown Unavailable [phone] Primary Care Provider [phone] [...] (05/20/2019): Added automatically from request for surgery [id number] Resolved Problems Problem Noted Date Diagnosed Date [...] of 2 - PCV) 01/30/2008 Influenza Vaccine 02/24/2025 06/01/2020 COVID-19 Vaccine (2024- season) 2025 06/27/2021, 12/06/2020, 11/15/2020 Pap Smear (Ages 21-65) 12/15/2025 12/15/2022 HPV Vaccines (No Doses Required) Completed Procedures Procedure Name Priority Date/Time Associated Diagnosis Comments THINPREP PAP TEST (PHOTOGRAPHIC ENGINEER) WITH HPV REFLEX, GC/CT Routine 12/15/2022 3:19 [...] MD LAB AMB PATH/CYTO ORDERABLES Final Result [facility] [address] [place] [address], from Last 3 Months or Most Recently Relevant to Health Maintenance Insurance [facility] [id number] [place] [id number] [place] [address] Advance Directives * Full Code (Latest Code [...] 8:07 AM 09/01/2019 2:10 AM Care Teams Door Opener Relationship Specialty Start Date End Date Unknown Unknow Provider Address PCP - General 12/29/22 Provider, Unknown 1 DO NOT USE THIS RECORD 02/01/19
--- OUTSIDE RECORDS SUMMARY | 2025-06-08 11:25 | XMS_ITS | Patient Health Record ---
Author Organization [facility] Address [address] [place] [address] Care Team Providers Care Rental Counter Clerk Name Role Phone Jabier Tucker Primary Care Provider Reason For Referral No Information Medications Medication SIG (Take, Route, Frequency, Duration) Notes Start Date End Date Status Blood Pressure Kit - Take for I10 daily please issue digital monitor in vitro daily; Duration: 365 days I10 Digital Monitor Length of need:365 days 09/30/2018 Active NIFEdipine ER 60 MG 1 tablet on an empty stomach Orally Once a day Active Plus 27-1 MG 1 tablet Orally On ce a day; Duration: 30 day(s) 01/24/2019 Active Immunizations Vaccine Route [...] Problem Status W/U Status Risk Notes Problem Essential hypertension (48396401) Essential (primary) hypertension (I10) Active confirmed Problem Anxiety state (617305615) Anxiety disorder, unspecified type (F41.9) Active confirmed Problem Amenorrhea (96582023) Amenorrhea (N91.2) Active confirmed Problem Obesity (673158965) Obesity (E66.9) Active confirmed Problem Folliculitis (46382716) Folliculitis (L73.9) Active confirmed Problem Menstrual disorder (959829893) Irregular menses (N92.6) Active confirmed Problem Amenorrhea (17520322) Absent menses (N91.2) Active confirmed Problem Mass of left side of neck (R22.1) Active confirmed present x 11 years Problem Increased liver function (10007272) LFT elevation (R94.5) Active confirmed liver echogenic on US c/w fatty liver 02/10 Problem Fatty liver (547933201) NAFLD (nonalcoholic fatty liver disease) (K76.0) Active confirmed AST previously 50, now 52. denies alcohol use Problem Dyshidrotic eczema (427851716) Dyshidrotic eczema (L30.1) Active confirmed Problem Counseling about tobacco use (466458428) Encounter for tobacco use cessation counseling (Z71.6) [...] Insured Coverage Start Date Coverage End Date HUSKY A [address] LISY Bernstein [id number] [phone] [id number] Vivian Sy Self - patient is the insured DENTAL Medicaid [address] [place] [phone] [id number] Vivian Sy Self - patient is the [...]
--- OUTSIDE RECORDS SUMMARY | 2025-06-08 11:25 | XMS_ITS | Encounter Summary ---
Author Organization [facility] Address [address] [place] [address] Care Team Providers Care Tool Mechanic Name Role Phone Viridiana Calvillo CNM Primary Care Provider [phone] Provider, Unknown Unavailable [phone] Bryanna Herrmann MD Primary Care Provider [phone] Greta Gray LPCA Unavailable [phone] Carrie Hunt SOLUTION MIXER Unavailable [phone] Unknown Primary Care Provider [phone] Encounter Details Date Type Department Care Team (Late st Contact Info) Description 05/20/2019 Prep for Surgery OBGYN IP [address] [place] [address] Bryanna Herrmann MD [address] [place] [id number] History of delivery (Primary Dx) Social History [...] Primary documented in this encounter Care Teams Tool Mechanic Relationship Specialty Start Date End Date Viridiana Calvillo CNM [address] [place] [address] [address] [place] [address] PCP - General Obstetrics and Gynecology 02/01/19 08/31/19 Bryanna Herrmann MD 1 DO NOT USE THIS RECORD PCP - General Obstetrics and Gynecology 09/01/19 12/28/22 Unknown Unknow Provider Address PCP - General 12/29/22 Provider, Unknown 1 DO NOT USE THIS RECORD 02/01/19 Greta Gray LPCA 1 DO NOT USE THIS RECORD Clinician Social Work 10/05/19 11/29/20 Carrie Hunt APRN [address] [place] [address] Primary BH Attending Psychiatry, General 10/28/19 documented as of this encounter
--- OUTSIDE RECORDS SUMMARY | 2025-06-08 11:25 | XMS_ITS | Clinical Summary ---
Author Organization [facility] ity Address [address] [place] [address] Care Team Providers Care Safety Physician Name Role Phone Unavailable Primary Care Provider [...] Cervical Cancer Screening: P ap Smear 2010 HPV Vaccines (1 - 3-dose SCD M series) 01/30/2016 HIV Screening 02/24/2024 Hepatitis C Screening 02/24/2024 Social Influencers of Health Screening 02/24/2024 Depression Screening 07/27/2024 COVID-19 Vaccine (1 - 2024-2 6 season) 2025 Influenza Vaccine (#1) 2025 RSV Immunization Adult Patie nts (1 - 1-dose 75+ series) 01/30/2064 HIB Vaccines Aged Out No longer eligi [...]
--- OUTSIDE RECORDS SUMMARY | 2025-06-08 11:25 | XMS_ITS | Clinical Summary ---
Author Organization [facility] Address [address] [place] [address] Care Team Providers Care Special Education Teaching Assistant Name Role Phone Unavailable Primary Care Provider [...]
--- OUTSIDE RECORDS SUMMARY | 2025-06-08 11:25 | XMS_ITS | Clinical Summary ---
Author Organization [facility] Address [address] [place] [address] Care Team Providers Care House Mover Helper Name Role Phone Unavailable Primary Care Provider [...] Immunization Administration Dates Next Due COVID-19 mRNA (ClassOwl) 06/27/2021,12/06/2020, Influenza (IM) Preservative Free 06/25/2016 Influenza [...] age to complete this topic Pneumococcal Vaccine: At-Ris k and Pediatric Patients (0 to 49 Years) Aged Out No longer eligible b ased on patient's age to complete this topic Insurance MEDICAID HUSKY A
== END 2025-06-08 10:55 | disposition home or self-care (01) ==
LOC: HO.HMCFM 09:46
PROVIDERS: PCP Physician Assistant Medical; Visit Provider Physician Assistant Medical
DX: I10 Essential (primary) hypertension (principal); D50.8 Other iron deficiency anemias; I83.93 Asymptomatic varicose veins of bilateral lower extremities